=== PATIENT | female | born 1995 | race Caucasian/White ===

== ENCOUNTER 2016-09-16 17:12 | Emergency (ER) | payer MEDICAID ==
--- NOTE | 2016-09-16 17:49 | Emergency Department Record ---
History of Present Illness - General Chief Complaint: Cough Stated Complaint: COUGH Time Seen by Provider: 09/16/16 17:40 Source: Patient Mode of Arrival: Ambulatory Limitations: No limitations - History of Present Illness Initial Comments: 21 yo female presents with a cough for a week. She has a history of asthma and recent ovarian surgery in the last 2 weeks. No history of DVT or PE. The cough has been harsh with some pain as well. She has had some productive sputum but no blood. No fever. She still has some mild low abdominal pain but no redness or drainage. MD Complaint: Cough Onset/Timin -: Week(s) Severity: Moderate Quality: Aching Consistency: Constant Improves With: Nothing Worsens With: Deep breaths Context: Other (Recent surgery) Associated Symptoms: Cough, Shortness of breath - Related Data Home Medications Medication Instructions Recorded Confirmed Last Taken Albuterol Sulfate [Proair Hfa] 1 - 2 puff IH .EVERY 4-6 HOURS PRN 09/16/1609/1609/16/16 14:00 Previous Rx's Medication Instructions Recorded Azithromycin [Zithromax] 250 mg PO DAILY #4 tab 09/16/16 Benzonatate [Tessalon] 1 cap PO Q8H PRN #20 cap 09/16/16 Hydrocodone/Acetaminophen [Dover 1 tab PO Q6H PRN #15 tab 09/16/16 7.5mg/325mg] Prednisone [Prednisone 20Mg] 20 mg PO BID #10 tab 09/16/16 Allergies Allergy/AdvReac Type Severity Reaction Status Date / Time codeine Allergy Intermediate HIVES Verified 08/28/16 17:48 morphine Allergy Intermediate VOMITING Verified 08/28/16 17:48 Penicillins Allergy Unknown PT UNSURE Verified 08/28/16 17:48 OF REACTION Travel Screening - Travel/Exposure Within Last 30 Days Have you traveled within the last 30 days?: No - Travel/Exposure Within Last Year Have you traveled outside the [place] in the last year?: No - Additonal Travel Details Have you been exposed to anyone with a communicable illness?: No - Travel Symptoms Symptom Screening: None Review of Systems Constitutional: Denies: Chills, Fever, Malaise, Night sweats, Weakness Eyes: Denies: Eye discharge, Eye pain, Photophobia, Vision change ENT: Denies: Congestion, Ear pain, Epistaxis, Throat pain Respiratory: Reports: Cough, Dyspnea, Wheezes. Denies: Hemoptysis Cardiovascular: Reports: Chest pain. Denies: Palpitations, Syncope Endocrine: Denies: Fatigue, Heat or cold intolerance, Polydipsia, Polyuria Gastrointestinal: Denies: Abdominal pain, Diarrhea, Nausea, Vomiting Genitourinary: Denies: Dysuria Musculoskeletal: Reports: Back pain. Denies: Arthralgia, Myalgia, Neck pain Skin: Denies: Bruising, Change in color, Rash Neurological: Reports: Headache. Denies: Confusion Psychiatric: Denies: Anxiety Hematological/Lymphatic: Denies: Blood Clots, Easy bleeding, Easy bruising, Swollen glands Past Medical History - SOCIAL HISTORY Smoking Status: Light tobacco smoker (<10/day) Alcohol Use: Rare Drug Use: None - RESPIRATORY Hx Respiratory Disorders: Yes Hx Asthma: Yes Comment:: cough x3 months - CARDIOVASCULAR Hx Cardio Disorders: No - NEURO Hx Neuro Disorders: No - GI Hx GI Disorders: Yes Hx Crohn's Disease: Yes Hx Rectal Bleeding: Yes Comment:: ulcerative colitis - Hx Genitourinary Disorders: No - ENDOCRINE Hx Endocrine Disorders: No Hx Thyroid Disease: (?hypothyroid) - MUSCULOSKELETAL Hx Musculoskeletal Disorders: No - PSYCH Hx Psych Problems: No - HEMATOLOGY/ONCOLOGY Hx Hematology/Oncology Disorders: Yes Hx Anemia: Yes (Iron def.) Hx Blood Transfusions: No Family Medical History Any Significant Family History?: Yes Hx Cancer: Grandparents Hx Heart Disease: Father Physical Exam - General General Appearance: Alert, Oriented x3, Cooperative, No acute distress Limitations: No limitations - Head Head exam: Normal inspection - Eye Eye exam: Normal appearance, PERRL. negative: Conjunctival injection, Scleral icterus - ENT ENT exam: Normal exam, Mucous membranes moist Ear exam: Normal external inspection Nasal Exam: Normal inspection Mouth exam: Normal external inspection Teeth exam: Normal inspection Throat exam: Normal inspection - Neck Neck exam: Normal inspection, Full ROM. negative: Lymphadenopathy, Tenderness - Respiratory Respiratory exam: Decreased breath sounds, Prolonged expiratory, Wheezes. negative: Normal lung sounds bilaterally, Accessory muscle use, Chest wall tenderness, Respiratory distress - Cardiovascular Cardiovascular Exam: Regular rate, Normal rhythm, Normal heart sounds - GI/Abdominal GI/Abdominal exam: Soft, Tenderness (mild at the incision sites). negative: Distended, Guarding, Rebound, Rigid - Rectal Rectal exam: Deferred - exam: Deferred - Extremities Extremities exam: Normal inspection, Full ROM, Normal capillary refill. negative: Calf tenderness, Pedal edema, Tenderness - Back Back exam: Reports: Normal inspection, Full ROM. Denies: CVA tenderness (R), CVA tenderness (L), Muscle spasm, Rash noted, Tenderness - Neurological Neurological exam: Alert, Normal gait, Oriented X3 - Psychiatric Psychiatric exam: Normal affect, Normal mood - Skin Skin exam: Dry, Intact, Normal color, Warm Course Vital Signs 09/16/16 17:19 Temperature 98.0 F Pulse Rate 98 H Respiratory 18 Rate Blood Pressure 136/81 Pulse Ox 98 - Reevaluation(s) Reevaluation #1: I discussed with the patient my concerns about her cough, shortness of breath, wheezing with her recent pelvic surgery I recommend CTA to rule out PE as well.. She understands and agrees. 09/16/16 17:53 Reevaluation #2: No acute changes on the labs Pt to CT 09/16/16 18:41 Reevaluation #3: CT is pending Case signed out to Dr Torres for results See his note for further documentation 09/16/16 19:41 Medical Decision Making - Lab Data Result diagrams: 09/16/16 17:50 09/16/16 17:50 Disposition Clinical Impression: Asthma attack Condition: (1) Good Instructions: Asthma (ED) Prescriptions: Hydrocodone/Acetaminophen [Dover 7.5mg/325mg] 1 tab PO Q6H PRN #15 tab PRN Reason: Pain - General Prednisone [Prednisone 20Mg] 20 mg PO BID #10 tab Benzonatate [Tessalon] 1 cap PO Q8H PRN #20 cap PRN Reason: Cough Azithromycin [Zithromax] 250 mg PO DAILY #4 tab Forms: Patient Portal Access
[2016-09-16 17:59] LABS: HEMATOCRIT 42.1 % (35.0-47.0); HEMOGLOBIN 14.7 gm/dl (11.6-16.0); MEAN CELL VOLUME 85.4 fl (81-97); MEAN CORPUSCULAR HEMOGLOBIN 29.8 pg (27-33); MEAN CORPUSCULAR HGB CONC 34.9 g/dl (32-36); MEAN PLATELET VOLUME 9.9 fl (7.4-10.4); PLATELET COUNT 482 K/uL (130-400); RED BLOOD COUNT 4.93 M/uL (3.80-5.40); RED CELL DISTRIBUTION WIDTH 14.4 % (11.5-14.5); WHITE BLOOD COUNT W/O DIFF 11.9 K/uL (4.2-12.2)
[2016-09-16 18:07] LABS: PLATELET ESTIMATE NORMAL (NORMAL)
[2016-09-16 18:12] LABS: ANION GAP 11.1 (7-16); BLOOD UREA NITROGEN 8 mg/dL (7-17); CARBON DIOXIDE 22.9 mmol/L (22-30); CREATININE 0.7 mg/dL (0.52-1.04); EST GLOMERULAR FILTRATION RATE > 60 ml/min; GLUCOSE,RANDOM 96 mg/dL (70-110)
[2016-09-16] MEDS: IPRATROPIUM/ALBUTEROL (0.5MG/3MG) NEB INH ONE (18:17)
[2016-09-16] MEDS: METHYLPREDNISOLONE PF 125MG/VIAL IVP STA (18:31)
--- NOTE | 2016-09-16 20:32 | Emergency Department Record ---
History of Present Illness - General Chief Complaint: Cough Stated Complaint: COUGH Time Seen by Provider: 09/16/16 17:40 Source: Patient Mode of Arrival: Ambulatory Limitations: No limitations - History of Present Illness Onset/Timin -: Week(s) Severity: Moderate Quality: Aching Consistency: Constant Improves With: Nothing Worsens With: Deep breaths Context: Other (Recent surgery) Associated Symptoms: Cough, Shortness of breath - Related Data Home Medications Medication Instructions Recorded Confirmed Last Taken Albuterol Sulfate [Proair Hfa] 1 - 2 puff IH .EVERY 4-6 HOURS PRN 09/16/1609/1609/16/16 14:00 Previous Rx's Medication Instructions Recorded Azithromycin [Zithromax] 250 mg PO DAILY #4 tab 09/16/16 Benzonatate [Tessalon] 1 cap PO Q8H PRN #20 cap 09/16/16 Hydrocodone/Acetaminophen [Sells 1 tab PO Q6H PRN #15 tab 09/16/16 7.5mg/325mg] Prednisone [Prednisone 20Mg] 20 mg PO BID #10 tab 09/16/16 Allergies Allergy/AdvReac Type Severity Reaction Status Date / Time codeine Allergy Intermediate HIVES Verified 08/28/16 17:48 morphine Allergy Intermediate VOMITING Verified 08/28/16 17:48 Penicillins Allergy Unknown PT UNSURE Verified 08/28/16 17:48 OF REACTION Travel Screening - Travel/Exposure Within Last 30 Days Have you traveled within the last 30 days?: No - Travel/Exposure Within Last Year Have you traveled outside the [place] in the last year?: No - Additonal Travel Details Have you been exposed to anyone with a communicable illness?: No - Travel Symptoms Symptom Screening: None Review of Systems Constitutional: Denies: Chills, Fever, Malaise, Night sweats, Weakness Eyes: Denies: Eye discharge, Eye pain, Photophobia, Vision change ENT: Denies: Congestion, Ear pain, Epistaxis, Throat pain Respiratory: Reports: Cough, Dyspnea, Wheezes. Denies: Hemoptysis Cardiovascular: Reports: Chest pain. Denies: Palpitations, Syncope Endocrine: Denies: Fatigue, Heat or cold intolerance, Polydipsia, Polyuria Gastrointestinal: Denies: Abdominal pain, Diarrhea, Nausea, Vomiting Genitourinary: Denies: Dysuria Musculoskeletal: Reports: Back pain. Denies: Arthralgia, Myalgia, Neck pain Skin: Denies: Bruising, Change in color, Rash Neurological: Reports: Headache. Denies: Confusion Psychiatric: Denies: Anxiety Hematological/Lymphatic: Denies: Blood Clots, Easy bleeding, Easy bruising, Swollen glands Past Medical History - SOCIAL HISTORY Smoking Status: Light tobacco smoker (<10/day) Alcohol Use: Rare Drug Use: None - RESPIRATORY Hx Respiratory Disorders: Yes Hx Asthma: Yes Comment:: cough x3 months - CARDIOVASCULAR Hx Cardio Disorders: No - NEURO Hx Neuro Disorders: No - GI Hx GI Disorders: Yes Hx Crohn's Disease: Yes Hx Rectal Bleeding: Yes Comment:: ulcerative colitis - Hx Genitourinary Disorders: No - ENDOCRINE Hx Endocrine Disorders: No Hx Thyroid Disease: (?hypothyroid) - MUSCULOSKELETAL Hx Musculoskeletal Disorders: No - PSYCH Hx Psych Problems: No - HEMATOLOGY/ONCOLOGY Hx Hematology/Oncology Disorders: Yes Hx Anemia: Yes (Iron def.) Hx Blood Transfusions: No Family Medical History Any Significant Family History?: Yes Hx Cancer: Grandparents Hx Heart Disease: Father Physical Exam - General Limitations: No limitations Course Vital Signs 09/16/16 09/16/16 17:19 18:24 Temperature 98.0 F Pulse Rate 98 H 96 H Respiratory 18 18 Rate Blood Pressure 136/81 Pulse Ox 98 96 - Reevaluation(s) Reevaluation #1: 09/16/16 20:29 CTA Chest: Minor bilateral infiltrates, no PE. Patient was given Zithromax in ED, RA biox 95%, Pulse 90's, appears stable for discharge a this time. 09/16/16 20:30 Medical Decision Making - Lab Data Result diagrams: 09/16/16 17:50 09/16/16 17:50 Lab Results 09/16/16 09/16/16 09/16/16 Range/Units 17:50 17:50 17:50 WBC 11.9 (4.2-12.2) K/uL RBC 4.93 (3.80-5.40) M/uL Hgb 14.7 (11.6-16.0) gm/dl Hct 42.1 (35.0-47.0) % MCV 85.4 (81-97) fl MCH 29.8 (27-33) pg MCHC 34.9 (32-36) g/dl RDW 14.4 (11.5-14.5) % Plt Count 482 H (130-400) K/uL MPV 9.9 (7.4-10.4) fl Neutrophils % 58.0 (47-80) % Lymphocytes % 21.0 (16-45) % Monocytes % 5.0 (0-9) % Eosinophils % 16.0 H (0-6) % Basophils % Not Reportable Platelet Estimate Normal (NORMAL) RBC Morphology Normal Sodium 139 (136-145) mmol/L Potassium 4.5 (3.5-5.1) mmol/L Chloride 105 (98-107) mmol/L Carbon Dioxide 22.9 (22-30) mmol/L Anion Gap 11.1 (7-16) BUN 8 (7-17) mg/dL Creatinine 0.7 (0.52-1.04) mg/dL Estimated GFR > 60 ml/min Random Glucose 96 (70-110) mg/dL Calcium 9.8 (8.5-10.1) mg/dL Serum HCG, Qual Negative (NEGATIVE) Disposition Clinical Impression: Asthma attack Pneumonia Qualifiers: Pneumonia type: due to unspecified organism Laterality: bilateral Lung location : lower lobe of lung Qualified Code(s): J18.9 - Pneumonia, unspecified organism Disposition: Home, Self-Care Condition: (1) Good Instructions: Asthma (ED) Prescriptions: Hydrocodone/Acetaminophen [Sells 7.5mg/325mg] 1 tab PO Q6H PRN #15 tab PRN Reason: Pain - General Prednisone [Prednisone 20Mg] 20 mg PO BID #10 tab Benzonatate [Tessalon] 1 cap PO Q8H PRN #20 cap PRN Reason: Cough Azithromycin [Zithromax] 250 mg PO DAILY #4 tab Forms: Patient Portal Access Time of Disposition: 20:31
[2016-09-16] MEDS ORDERED: HYDROCODONE/APAP 5/325MG TABLET PO ONE (20:33)
[2016-09-16] MEDS: AZITHROMYCIN 500 MG TABLET PO ONE (20:37)
--- NOTE | 2016-09-18 15:14 | CT ANGIOGRAM REPORT ---
DATE: 09/16/2016 at 6:44 p.m. EXAM: CT ANGIOGRAM OF THE CHEST WITH POSTPROCESSING. HISTORY: Chest pain and cough. Difficulty breathing. A history of ovarian surgery two weeks ago. TECHNIQUE: Standard CT angiography of the chest was performed with postprocessing following the bolus administration of 100 mL of Omnipaque 350. Additional coronal and sagittal maximum intensity projection reformatted images were performed on an independent work station under concurrent supervision. COMPARISON: 06/13/2015. FINDINGS: The heart is normal in size. The aorta is normal in caliber with no dissection. The pulmonary arterial tree is normal. There is no pulmonary embolus. There is residual thymic tissue within the anterior mediastinal which appears unchanged. There are mildly enlarged right hilar and subcarinal lymph nodes which are also stable from the 2014 examination. The right hilar lymph node measures 1.1 x 1.7 cm, and the subcarinal lymph node measures 1.7 x 2.7 cm. Other scattered non-enlarged mediastinal and hilar lymph nodes are present , and all appear stable. There are mild ground glass infiltrates within the lower lungs bilaterally consistent with mild acute pneumonitis. A stable, small air-filled bleb is present within the left upper lobe. There is no pneumothorax or effusion. The visualized portions of the upper abdomen appear normal. The gallbladder is surgically absent. IMPRESSION: 1. THERE IS NO EVIDENCE FOR PULMONARY EMBOLUS. 2. MILD GROUND GLASS INFILTRATES WITHIN THE LOWER LOBES BILATERALLY CONSISTENT WITH MINOR, ACUTE PNEUMONITIS. 3. STABLE, MILDLY ENLARGED RIGHT HILAR AND SUBCARINAL LYMPH NODES. 4. STABLE AIR-FILLED BLEB WITHIN THE LEFT UPPER LOBE. JOB NUMBER: [id number] [facility]
== END 2016-09-16 20:44 | disposition home or self-care (01) ==
LOC: ER 17:12
DX: J45.901 Unspecified asthma with (acute) exacerbation (principal); J18.9 Pneumonia, unspecified organism; R06.02 Shortness of breath; F17.210 Nicotine dependence, cigarettes, uncomplicated; R10.30 Lower abdominal pain, unspecified; Z98.890 Other specified postprocedural states
CPT/HCPCS: 99284 ×2; 96374; 80048; 84703; 85027; 71275; 94640; Q9967; J2930

== ENCOUNTER 2016-10-12 21:56 | Emergency (ER) | payer MEDICAID ==
--- NOTE | 2016-10-12 22:19 | Emergency Department Record ---
History of Present Illness - General Chief complaint: Toothache Stated complaint: JAW/DENTAL PAIN Time Seen by Provider: 10/12/16 22:13 Source: Patient Mode of Arrival: Ambulatory - History of Present Illness Initial comments: The yue saw a dentist last Friday10-07-16 for dental pain on her left upper teeth. He was unable to extract the tooth because she is unable to get her jaw opened wide enough and he sent her to a specialist at [facility]. She states that some pus has beendraining along the lower teeth, but now she is in more pain, and can't eat or chew normally. She denies f,c, or trouble swallowing. MD complaint: Tooth pain Onset/Timin -: Hour(s) Severity scale (1-10): 10 Improves with: None Worsens with: Eating, Movement - Related Data Home Medications Medication Instructions Recorded Confirmed Last Taken Albuterol Sulfate [Proair Hfa] 1 - 2 puff IH .EVERY 4-6 HOURS PRN 09/16/1610/1209/16/16 14:00 Previous Rx's Medication Instructions Recorded Clindamycin HCl [Cleocin HCl] 300 mg PO TID #20 capsule 10/12/16 Tramadol HCl [Ultram] 50 mg PO Q8H #7 tab 10/12/16 Allergies Allergy/AdvReac Type Severity Reaction Status Date / Time codeine Allergy Intermediate HIVES Verified 08/28/16 17:48 morphine Allergy Intermediate VOMITING Verified 08/28/16 17:48 Penicillins Allergy Unknown PT UNSURE Verified 08/28/16 17:48 OF REACTION Travel Screening - Travel/Exposure Within Last 30 Days Have you traveled within the last 30 days?: No - Travel Symptoms Symptom Screening: None Review of Systems Reviewed: No additional complaints except as noted below Constitutional: Reports: As per HPI. Denies: Chills, Fever, Malaise, Night sweats, Weakness, Weight change Eyes: Reports: As per HPI. Denies: Eye discharge, Eye pain, Photophobia, Vision change ENT: Reports: As per HPI. Denies: Congestion, Dental pain, Ear pain, Epistaxis , Hearing loss, Throat pain Respiratory: Reports: As per HPI. Denies: Cough, Dyspnea, Hemoptysis, Stridor, Wheezes Cardiovascular: Reports: As per HPI. Denies: Arrhythmia, Chest pain, Dyspnea on exertion, Edema, Murmurs, Orthopnea, Palpitations, Paroxysmal nocturnal dyspnea, Rheumatic Fever, Syncope Endocrine: Reports: As per HPI. Denies: Fatigue, Heat or cold intolerance, Polydipsia, Polyuria Gastrointestinal: Reports: As per HPI. Denies: Abdominal pain, Constipation, Diarrhea, Hematemesis, Hematochezia, Melena, Nausea, Vomiting Genitourinary: Reports: As per HPI. Denies: Abnormal menses, Discharge, Dyspareunia, Dysuria, Frequency, Hematuria, Incontinence, Retention, Urgency Musculoskeletal: Reports: As per HPI. Denies: Arthralgia, Back pain, Gout, Joint swelling, Myalgia, Neck pain Skin: Reports: As per HPI. Denies: Bruising, Change in color, Change in hair/ nails, Lesions, Pruritus, Rash Neurological: Reports: As per HPI. Denies: Abnormal gait, Confusion, Headache, Numbness, Paresthesias, Seizure, Tingling, Tremors, Vertigo, Weakness Psychiatric: Reports: As per HPI. Denies: Anxiety, Auditory hallucinations, Depression, Homicidal thoughts, Suicidal thoughts, Visual hallucinations Hematological/Lymphatic: Reports: As per HPI. Denies: Anemia, Blood Clots, Easy bleeding, Easy bruising, Swollen glands Past Medical History - SOCIAL HISTORY Smoking Status: Light tobacco smoker (<10/day) - RESPIRATORY Hx Respiratory Disorders: Yes Hx Asthma: Yes Comment:: cough x3 months - CARDIOVASCULAR Hx Cardio Disorders: No - NEURO Hx Neuro Disorders: No - GI Hx GI Disorders: Yes Hx Crohn's Disease: Yes Hx Rectal Bleeding: Yes Comment:: ulcerative colitis - Hx Genitourinary Disorders: No - ENDOCRINE Hx Endocrine Disorders: No Hx Thyroid Disease: (?hypothyroid) - MUSCULOSKELETAL Hx Musculoskeletal Disorders: No - PSYCH Hx Psych Problems: No - HEMATOLOGY/ONCOLOGY Hx Hematology/Oncology Disorders: Yes Hx Anemia: Yes (Iron def.) Hx Blood Transfusions: No Family Medical History Any Significant Family History?: Yes Hx Cancer: Grandparents Hx Heart Disease: Father Physical Exam - General General Appearance: Alert, Oriented x3, Cooperative, No acute distress - Head Head exam: Normal inspection - Eye Eye exam: Normal appearance, PERRL Pupils: Normal accommodation - ENT ENT exam: Normal exam, Mucous membranes moist, Normal external ear exam, Normal orophraynx, TM's normal bilaterally Ear exam: Normal external inspection. negative: External canal tenderness Nasal Exam: Normal inspection. negative: Discharge, Sinus tenderness Mouth exam: Normal external inspection, Tongue normal Teeth exam: Normal inspection, Dental tenderness # (#16, #17), Gingival enlargement (inflamatory changes along lower mucca gum line.). negative: Dental caries Throat exam: Normal inspection. negative: Tonsillar erythema, Tonsillar exudate - Neck Neck exam: Normal inspection, Full ROM. negative: Lymphadenopathy, Meningismus , Tenderness - Respiratory Respiratory exam: Normal lung sounds bilaterally. negative: Respiratory distress - Cardiovascular Cardiovascular Exam: Regular rate, Normal rhythm, Normal heart sounds - GI/Abdominal GI/Abdominal exam: Soft, Normal bowel sounds. negative: Tenderness - Rectal Rectal exam: Deferred - exam: Deferred - Extremities Extremities exam: Normal inspection, Full ROM, Normal capillary refill. negative: Tenderness - Back Back exam: Reports: Normal inspection, Full ROM. Denies: Muscle spasm, Rash noted, Tenderness - Neurological Neurological exam: Alert, Normal gait, Oriented X3, Reflexes normal - Psychiatric Psychiatric exam: Normal affect, Normal mood - Skin Skin exam: Dry, Intact, Normal color, Warm Course Vital Signs 10/12/16 22:04 Temperature 98 F Pulse Rate [ 103 H Pulse Ox Probe] Respiratory 20 Rate Blood Pressure 130/101 [Left Arm] Pulse Ox 98 Medical Decision Making - Management Options MDM Management: No Additional Work-up Planned (FU with Dentist as previously arranged.) Disposition Disposition: Discharge Clinical Impression: Pain, dental Disposition: Home, Self-Care Instructions: Dental Abscess (ED), Toothache (ED) Additional Instructions: Take antibiotics until gone. Take ultram only if needed for severe pain. Tylenol or ibuprofen as directed as needed for mild to moderate pain. Soft diet. FU with dentist as previously arranged. Prescriptions: Clindamycin HCl [Cleocin HCl] 300 mg PO TID #20 capsule Tramadol HCl [Ultram] 50 mg PO Q8H #7 tab Forms: Patient Portal Access
[2016-10-12] MEDS ORDERED: CLINDAMYCIN 150 MG CAP PO ONE (22:23)
[2016-10-12] MEDS ORDERED: TRAMADOL HCL 50 MG TABLET PO ONE (22:24)
== END 2016-10-12 22:58 | disposition home or self-care (01) ==
LOC: ER 21:56
DX: K08.89 Other specified disorders of teeth and supporting structures (principal)
CPT/HCPCS: 99282

== ENCOUNTER 2016-10-16 13:15 | Emergency (ER) | payer MEDICAID ==
--- NOTE | 2016-10-16 13:25 | Emergency Department Record ---
History of Present Illness - General Chief complaint: Toothache Stated complaint: TOOTHACHE Time Seen by Provider: 10/16/16 13:24 Source: Patient, RN notes reviewed - History of Present Illness Initial comments: toothache seen here on sep and given clindamycin and she is using tramadol. Upper left last molar painful and she was seen here and previously she saw a dentist in [place] who referred her to [facility] and her appointment is oct complaint: Tooth pain - Related Data Home Medications Medication Instructions Recorded Confirmed Last Taken Albuterol Sulfate [Proair Hfa] 1 - 2 puff IH .EVERY 4-6 HOURS PRN 09/16/1610/1609/16/16 14:00 Previous Rx's Medication Instructions Recorded Clindamycin HCl [Cleocin HCl] 300 mg PO TID #20 capsule 10/12/16 Tramadol HCl [Ultram] 50 mg PO Q8H #7 tab 10/12/16 Cephalexin [Keflex] 500 mg PO QID #40 cap 10/16/16 Tramadol HCl 50 mg PO Q8H #15 tab 10/16/16 Allergies Allergy/AdvReac Type Severity Reaction Status Date / Time codeine Allergy Intermediate HIVES Verified 08/28/16 17:48 morphine Allergy Intermediate VOMITING Verified 08/28/16 17:48 Penicillins Allergy Unknown PT UNSURE Verified 08/28/16 17:48 OF REACTION Review of Systems Reviewed: No additional complaints except as noted below Constitutional: Reports: As per HPI. Denies: Chills, Fever, Malaise, Night sweats, Weakness, Weight change Eyes: Reports: As per HPI. Denies: Eye discharge, Eye pain, Photophobia, Vision change ENT: Reports: As per HPI, Dental pain. Denies: Congestion, Ear pain, Epistaxis , Hearing loss, Throat pain Respiratory: Reports: As per HPI. Denies: Cough, Dyspnea, Hemoptysis, Stridor, Wheezes Cardiovascular: Reports: As per HPI. Denies: Arrhythmia, Chest pain, Dyspnea on exertion, Edema, Murmurs, Orthopnea, Palpitations, Paroxysmal nocturnal dyspnea, Rheumatic Fever, Syncope Endocrine: Reports: As per HPI. Denies: Fatigue, Heat or cold intolerance, Polydipsia, Polyuria Gastrointestinal: Reports: As per HPI. Denies: Abdominal pain, Constipation, Diarrhea, Hematemesis, Hematochezia, Melena, Nausea, Vomiting Genitourinary: Reports: As per HPI. Denies: Abnormal menses, Discharge, Dyspareunia, Dysuria, Frequency, Hematuria, Incontinence, Retention, Urgency Musculoskeletal: Reports: As per HPI. Denies: Arthralgia, Back pain, Gout, Joint swelling, Myalgia, Neck pain Skin: Reports: As per HPI. Denies: Bruising, Change in color, Change in hair/ nails, Lesions, Pruritus, Rash Neurological: Reports: As per HPI. Denies: Abnormal gait, Confusion, Headache, Numbness, Paresthesias, Seizure, Tingling, Tremors, Vertigo, Weakness Psychiatric: Reports: As per HPI. Denies: Anxiety, Auditory hallucinations, Depression, Homicidal thoughts, Suicidal thoughts, Visual hallucinations Hematological/Lymphatic: Reports: As per HPI. Denies: Anemia, Blood Clots, Easy bleeding, Easy bruising, Swollen glands Past Medical History - SOCIAL HISTORY Smoking Status: Light tobacco smoker (<10/day) - RESPIRATORY Hx Respiratory Disorders: Yes Hx Asthma: Yes Comment:: cough x3 months - CARDIOVASCULAR Hx Cardio Disorders: No - NEURO Hx Neuro Disorders: No - GI Hx GI Disorders: Yes Hx Crohn's Disease: Yes Hx Rectal Bleeding: Yes Comment:: ulcerative colitis - Hx Genitourinary Disorders: No - ENDOCRINE Hx Endocrine Disorders: No Hx Thyroid Disease: (?hypothyroid) - MUSCULOSKELETAL Hx Musculoskeletal Disorders: No - PSYCH Hx Psych Problems: No - HEMATOLOGY/ONCOLOGY Hx Hematology/Oncology Disorders: Yes Hx Anemia: Yes (Iron def.) Hx Blood Transfusions: No Family Medical History Hx Cancer: Grandparents Hx Heart Disease: Father Physical Exam - General General Appearance: Alert, Oriented x3, Cooperative, No acute distress - Head Head exam: Normal inspection - Eye Eye exam: Normal appearance, PERRL Pupils: Normal accommodation - ENT ENT exam: Normal exam, Mucous membranes moist, Normal external ear exam, Normal orophraynx, TM's normal bilaterally Ear exam: Normal external inspection. negative: External canal tenderness Nasal Exam: Normal inspection. negative: Discharge, Sinus tenderness Mouth exam: Normal external inspection, Tongue normal Teeth exam: Normal inspection, Dental tenderness # (upper left last molar). negative: Dental caries Throat exam: Normal inspection. negative: Tonsillar erythema, Tonsillar exudate - Neck Neck exam: Normal inspection, Full ROM. negative: Tenderness - Respiratory Respiratory exam: Normal lung sounds bilaterally. negative: Respiratory distress - Cardiovascular Cardiovascular Exam: Regular rate, Normal rhythm, Normal heart sounds - GI/Abdominal GI/Abdominal exam: Soft, Normal bowel sounds. negative: Tenderness - Rectal Rectal exam: Deferred - exam: Deferred - Extremities Extremities exam: Normal inspection, Full ROM, Normal capillary refill. negative: Tenderness - Back Back exam: Reports: Normal inspection, Full ROM. Denies: Muscle spasm, Rash noted, Tenderness - Neurological Neurological exam: Alert, Normal gait, Oriented X3, Reflexes normal - Psychiatric Psychiatric exam: Normal affect, Normal mood - Skin Skin exam: Dry, Intact, Normal color, Warm Disposition Clinical Impression: Pain, dental Disposition: Home, Self-Care Condition: (1) Good Instructions: Toothache (ED) Additional Instructions: continue clindamycin and start keflex four times a day warm water rinses call dentist to see if she can get in sooner Prescriptions: Cephalexin [Keflex] 500 mg PO QID #40 cap Tramadol HCl 50 mg PO Q8H #15 tab Forms: Patient Portal Access Time of Disposition: 13:53
== END 2016-10-16 14:04 | disposition home or self-care (01) ==
LOC: ER 13:15
DX: K08.89 Other specified disorders of teeth and supporting structures (principal)
CPT/HCPCS: 99282

== ENCOUNTER 2016-12-12 13:31 | Emergency (ER) | payer MEDICAID ==
--- NOTE | 2016-12-12 13:48 | Emergency Department Record ---
History of Present Illness - General Chief complaint: Dental Stated complaint: MOUTH PAIN Time Seen by Provider: 12/12/16 13:47 Source: Patient Mode of Arrival: Ambulatory Limitations: No limitations - History of Present Illness Initial comments: The patient has chronic L upper molar pain for months and now it is hurting again. She has a fx'd tooth and is having trouble getting into oral surgery. There is no swelling, fever, or edema. MD complaint: Tooth pain Onset/Timin -: Month(s) Location: Tooth # Severity: Moderate Severity scale (1-10): 8 Quality: Aching, Sharp Consistency: Constant Improves with: None Worsens with: Eating Context- Dental: History of dental caries Associated Symptoms: Toothache - Related Data Previous Rx's Medication Instructions Recorded Clindamycin HCl [Cleocin HCl] 300 mg PO QID #28 capsule 12/12/16 Tramadol HCl 50 mg PO Q8H #15 tab 12/12/16 Allergies Allergy/AdvReac Type Severity Reaction Status Date / Time codeine Allergy Intermediate HIVES Verified 08/28/16 17:48 morphine Allergy Intermediate VOMITING Verified 08/28/16 17:48 Penicillins Allergy Unknown PT UNSURE Verified 08/28/16 17:48 OF REACTION Travel Screening - Travel/Exposure Within Last 30 Days Have you traveled within the last 30 days?: No Review of Systems Constitutional: Denies: Chills, Fever Eyes: Denies: Eye discharge ENT: Denies: Congestion Respiratory: Denies: Cough, Dyspnea Past Medical History - SOCIAL HISTORY Smoking Status: Light tobacco smoker (<10/day) Alcohol Use: None Drug Use: None - RESPIRATORY Hx Respiratory Disorders: Yes Hx Asthma: Yes Comment:: cough x3 months - CARDIOVASCULAR Hx Cardio Disorders: No - NEURO Hx Neuro Disorders: No - GI Hx GI Disorders: Yes Hx Crohn's Disease: Yes Hx Rectal Bleeding: Yes Comment:: ulcerative colitis - Hx Genitourinary Disorders: No - ENDOCRINE Hx Endocrine Disorders: No Hx Thyroid Disease: (?hypothyroid) - MUSCULOSKELETAL Hx Musculoskeletal Disorders: No - PSYCH Hx Psych Problems: No - HEMATOLOGY/ONCOLOGY Hx Hematology/Oncology Disorders: Yes Hx Anemia: Yes (Iron def.) Hx Blood Transfusions: No Family Medical History Any Significant Family History?: Yes Hx Cancer: Grandparents Hx Heart Disease: Father Physical Exam - General General Appearance: Alert, Oriented x3, Cooperative, No acute distress - Head Head exam: Atraumatic, Normocephalic, Normal inspection - Eye Eye exam: Normal appearance, PERRL - ENT ENT exam: Normal exam, Mucous membranes moist, Normal external ear exam, Normal orophraynx, TM's normal bilaterally Teeth exam: Dental caries, Dental tenderness # (15. The tooth is partially fx' d. There is no gum line swelling or any sign of any abscess.). negative: Normal inspection Throat exam: negative: Normal inspection, Tonsillar erythema, Tonsillomegaly - Neck Neck exam: Normal inspection, Full ROM. negative: Tenderness Course Vital Signs 12/12/16 13:33 Temperature 97.8 F Pulse Rate 108 H Respiratory 18 Rate Blood Pressure 126/75 Pulse Ox 98 - Reevaluation(s) Reevaluation #1: I did discuss the issues with the patient and the need for oral surgery F/U. 12/12/16 14:03 Disposition Disposition: Discharge Clinical Impression: Pain, dental Disposition: Home, Self-Care Condition: (1) Good Instructions: Toothache (ED) Additional Instructions: Please see the dental clinic in [place] when possible. Please take the Clindamycin and Tramadol as directed. Please see your PCP for further pain medicine. Prescriptions: Clindamycin HCl [Cleocin HCl] 300 mg PO QID #28 capsule Tramadol HCl 50 mg PO Q8H #15 tab Forms: Patient Portal Access Time of Disposition: 13:56
== END 2016-12-12 14:07 | disposition home or self-care (01) ==
LOC: ER 13:31
DX: S02.5XXA Fracture of tooth (traumatic), initial encounter for closed fracture (principal)
CPT/HCPCS: 99282

== ENCOUNTER 2016-12-24 12:36 | Emergency (ER) | payer MEDICAID ==
--- NOTE | 2016-12-24 12:58 | Emergency Department Record ---
History of Present Illness - General Chief Complaint: Fall Injury Stated Complaint: FELL Time Seen by Provider: 12/24/16 12:55 Source: Patient Mode of Arrival: Ambulatory Limitations: No limitations - History of Present Illness Initial Comments: The patient is here due to injuring herself at home about 45 minutes ago. She states she slipped getting out of the shower and landed on her back hitting her head and low back in the process. Now she is having low back and head pain. She does have a BARROSO and is nauseated but denies any LOC, vomiting, AP, leg numbness, weakness or any bowel or bladder issues. She is ambulating normally and denies the possibility of due to having a normal menses 2 weeks ago and being on oral contraceptives daily. The patient ambulated to the ED with no difficulty. MD Complaint: Fall Onset/Timin -: Minutes(s) Fall From: Standing When Fall Occurred: Just prior to arrival Place Fall Occurred: Home Loss of Consciousness: None Prolonged Down Time?: No Location: Head, Back Quality: Aching Associated Symptoms: Lightheaded, Vertigo - Isak Coma Scale Eye Response: (4) Open spontaneously Motor Response: (6) Obeys commands Verbal Response: (5) Oriented Isak Total: 15 - Related Data Previous Rx's Medication Instructions Recorded Cyclobenzaprine HCl [Flexeril] 10 mg PO TID PRN #20 tablet 12/24/16 Naproxen [Naprosyn] 250 mg PO BID #14 tablet 12/24/16 Allergies Allergy/AdvReac Type Severity Reaction Status Date / Time codeine Allergy Intermediate HIVES Verified 08/28/16 17:48 morphine Allergy Intermediate VOMITING Verified 08/28/16 17:48 Penicillins Allergy Unknown PT UNSURE Verified 08/28/16 17:48 OF REACTION Travel Screening - Travel/Exposure Within Last 30 Days Have you traveled within the last 30 days?: No - Travel/Exposure Within Last Year Have you traveled outside the [place] in the last year?: No - Additonal Travel Details Have you been exposed to anyone with a communicable illness?: No - Travel Symptoms Symptom Screening: None Review of Systems Constitutional: Denies: Chills, Fever Eyes: Denies: Eye discharge ENT: Denies: Congestion, Throat pain Respiratory: Denies: Cough, Dyspnea Past Medical History - SOCIAL HISTORY Smoking Status: Light tobacco smoker (<10/day) Alcohol Use: None Drug Use: None - RESPIRATORY Hx Respiratory Disorders: Yes Hx Asthma: Yes Comment:: cough x3 months - CARDIOVASCULAR Hx Cardio Disorders: No - NEURO Hx Neuro Disorders: No - GI Hx GI Disorders: Yes Hx Crohn's Disease: Yes Hx Rectal Bleeding: Yes Comment:: ulcerative colitis - Hx Genitourinary Disorders: No - ENDOCRINE Hx Endocrine Disorders: No Hx Thyroid Disease: (?hypothyroid) - MUSCULOSKELETAL Hx Musculoskeletal Disorders: No - PSYCH Hx Psych Problems: No - HEMATOLOGY/ONCOLOGY Hx Hematology/Oncology Disorders: Yes Hx Anemia: Yes (Iron def.) Hx Blood Transfusions: No Family Medical History Any Significant Family History?: No Hx Cancer: Grandparents Hx Heart Disease: Father Physical Exam - General General Appearance: Alert, Oriented x3, Cooperative, No acute distress - Head Head exam: Atraumatic, Normocephalic, Normal inspection (There are no signs of any trauma, swelling, or bruising at the site of impact.) - Eye Eye exam: Normal appearance, PERRL - Neck Neck exam: Normal inspection, Full ROM (There is no significant pain with ROM.) . negative: Meningismus, Tenderness - Respiratory Respiratory exam: Normal lung sounds bilaterally. negative: Respiratory distress - Cardiovascular Cardiovascular Exam: Regular rate, Normal rhythm, Normal heart sounds - Extremities Extremities exam: Normal inspection, Full ROM, Normal capillary refill. negative: Tenderness - Back Back exam: Reports: Normal inspection, Vertebral tenderness (mildly to the L1-3 area. There is no bruising or selling appreciated.), Other (Neg SLR bilaterally. ) - Neurological Neurological exam: Alert, Normal gait, Oriented X3, Reflexes normal. negative: Abnormal gait, Altered, Motor sensory deficit Course Vital Signs 12/24/16 12:37 Temperature 97.4 F L Pulse Rate 122 H Respiratory 18 Rate Blood Pressure 122/84 Pulse Ox 97 - Reevaluation(s) Reevaluation #1: The patient is resting with no new complaints. She is still having pain in the lower and mid back and head. She has had no nausea, vomiting, or visual changes. I explained to the patient that her xrays are WNL's. We will discharge the patient on pain medicines and muscle relaxers and will have her F/U with her PCP later this week if needed. 12/24/16 14:40 Medical Decision Making - Data Complexity MDM Data: X-Ray Ordered and/or Reviewed - Radiology Data Radiology results: Report reviewed (The patient's xrays are all neg for any bony or acute traumatic injuries.) Disposition Disposition: Discharge Clinical Impression: Lumbar back pain Qualifiers: Chronicity: acute Back pain laterality: unspecified Sciatica presence: without sciatica Qualified Code(s): M54.5 - Low back pain Head injury, acute Qualifiers: Encounter type: initial encounter Qualified Code(s): S09.90XA - Unspecified injury of head, initial encounter Disposition: Home, Self-Care Condition: (1) Good Instructions: Minor Head Injury (ED), Low Back Strain (ED) Additional Instructions: Please rest and use the Naprosyn and Flexeril as directed. Please see your PCP if not better in 2-3 days. Return to the ER for any increased pain, fever, vomiting, leg numbness, weakness or any bowel or bladder incontinence. Prescriptions: Cyclobenzaprine HCl [Flexeril] 10 mg PO TID PRN #20 tablet PRN Reason: Pain Naproxen [Naprosyn] 250 mg PO BID #14 tablet Forms: Patient Portal Access Time of Disposition: 14:45
[2016-12-24] MEDS ORDERED: KETOROLAC 30 MG/ML VIAL IM ONE (13:03)
[2016-12-24] MEDS ORDERED: HYDROCODONE/APAP 5/325MG TABLET PO ONE (14:03)
== END 2016-12-24 14:50 | disposition home or self-care (01) ==
LOC: ER 12:36
DX: S09.90XA Unspecified injury of head, initial encounter (principal); M54.5 Low back pain; R11.0 Nausea; W18.2XXA Fall in (into) shower or empty bathtub, initial encounter; Y93.E1 Activity, personal bathing and showering; Y92.002 Bathroom of unspecified non-institutional (private) residence as the place of occurrence of the external cause
CPT/HCPCS: 99283; 96372; 99284; 72110; 72072; 70450; J1885

== ENCOUNTER 2017-02-12 20:01 | Emergency (ER) | payer MEDICAID ==
--- NOTE | 2017-02-12 20:29 | Emergency Department Record ---
History of Present Illness - General Chief complaint: Dental Stated complaint: DENTAL PAIN Time Seen by Provider: 02/12/17 20:25 Source: Patient Mode of Arrival: Ambulatory Limitations: No limitations - History of Present Illness Initial comments: 21 yo female presents to ED with a CC of left upper dental pain "for months" that worsened today following a new fracture to the tooth. Patient reports that she was supposed to go to [facility] ago for dental examination, but needed to cancel for personal reasons. Patient denies fevers, chills, or sore throat symptoms. MD complaint: Tooth pain Onset/Timin -: Days(s) Location: Tooth # 1 - Dental fracture Severity: Severe Severity scale (1-10): 10 Quality: Aching Consistency: Constant Improves with: Other medication Worsens with: Eating Context- Dental: History of dental caries, Other Associated Symptoms: Gum swelling, Toothache - Related Data Previous Rx's Medication Instructions Recorded Clindamycin HCl 300 mg PO TID #21 capsule 02/12/17 Naproxen [Naprosyn] 500 mg PO Q12H #30 tab 02/12/17 Allergies Allergy/AdvReac Type Severity Reaction Status Date / Time codeine Allergy Intermediate HIVES Verified 08/28/16 17:48 morphine Allergy Intermediate VOMITING Verified 08/28/16 17:48 Penicillins Allergy Unknown PT UNSURE Verified 08/28/16 17:48 OF REACTION Travel Screening - Travel/Exposure Within Last 30 Days Have you traveled within the last 30 days?: No - Travel Symptoms Symptom Screening: None Review of Systems Constitutional: Denies: Chills, Fever, Malaise, Night sweats Eyes: Denies: Eye discharge, Eye pain ENT: Reports: Dental pain. Denies: Congestion, Ear pain Respiratory: Denies: Cough, Dyspnea Cardiovascular: Denies: Chest pain, Dyspnea on exertion Endocrine: Denies: Fatigue, Heat or cold intolerance Gastrointestinal: Denies: Abdominal pain, Nausea, Vomiting Genitourinary: Denies: Incontinence, Retention Musculoskeletal: Denies: Arthralgia, Back pain Skin: Denies: Bruising, Change in color Neurological: Denies: Abnormal gait, Confusion, Headache, Seizure Psychiatric: Denies: Anxiety Hematological/Lymphatic: Denies: Anemia, Blood Clots Past Medical History - SOCIAL HISTORY Smoking Status: Light tobacco smoker (<10/day) Drug Use: None - RESPIRATORY Hx Respiratory Disorders: Yes Hx Asthma: Yes Comment:: cough x3 months - CARDIOVASCULAR Hx Cardio Disorders: No - NEURO Hx Neuro Disorders: No - GI Hx GI Disorders: Yes Hx Crohn's Disease: Yes Hx Rectal Bleeding: Yes Comment:: ulcerative colitis - Hx Genitourinary Disorders: No - ENDOCRINE Hx Endocrine Disorders: No Hx Thyroid Disease: (?hypothyroid) - MUSCULOSKELETAL Hx Musculoskeletal Disorders: No - PSYCH Hx Psych Problems: No - HEMATOLOGY/ONCOLOGY Hx Hematology/Oncology Disorders: Yes Hx Anemia: Yes (Iron def.) Hx Blood Transfusions: No Family Medical History Hx Cancer: Grandparents Hx Heart Disease: Father Physical Exam - General General Appearance: Alert, Oriented x3, Cooperative, Mild distress Limitations: No limitations - Head Head exam: Atraumatic, Normocephalic, Normal inspection Head exam detail: negative: Abrasion, Contusion, Og's sign, General tenderness, Hematoma, Laceration - Eye Eye exam: Normal appearance. negative: Conjunctival injection, Periorbital swelling, Periorbital tenderness, Scleral icterus - ENT Ear exam: negative: Auricular hematoma, Auricular trauma Nasal Exam: negative: Active bleeding, Discharge, Dried blood, Foreign body Mouth exam: negative: Drooling, Laceration, Muffled voice, Tongue elevation Teeth exam: Dental caries, Dental tenderness #, Fractured tooth # Throat exam: negative: Tonsillar erythema, Tonsillomegaly, R peritonsillar mass , L peritonsillar mass Image of Mouth/Teeth: 1 - Dental fracture present, no gingival abscess is present - Neck Neck exam: Normal inspection. negative: Meningismus, Tenderness - Respiratory Respiratory exam: Normal lung sounds bilaterally. negative: Rales, Respiratory distress, Rhonchi, Stridor - Cardiovascular Cardiovascular Exam: Regular rate, Normal rhythm, Normal heart sounds - GI/Abdominal GI/Abdominal exam: Soft - Rectal Rectal exam: Deferred - exam: Deferred - Extremities Extremities exam: Normal inspection. negative: Calf tenderness, Pedal edema, Tenderness - Back Back exam: Denies: CVA tenderness (R), CVA tenderness (L) - Neurological Neurological exam: Alert, Normal gait, Oriented X3 - Psychiatric Psychiatric exam: Normal affect, Normal mood - Skin Skin exam: Normal color. negative: Abrasion Type of lesion: negative: abrasion Course - Reevaluation(s) Reevaluation #1: 02/12/17 20:32 Symptoms are consistent with dental caries/fracture without gingival abscess, patient appears stable for discharge on Penicllin VK and Naprosyn for her symptoms with instructions to follow-up with [facility] or a Dentist from the referral list. Disposition Disposition: Discharge Clinical Impression: Dental caries Disposition: Home, Self-Care Condition: (2) Stable Instructions: Dental Abscess (ED) Additional Instructions: Return to ED if your symptoms worsen or if you have any concerns. Clindamycin and Naprosyn as directed. Follow-up with your Dentist or a dentist from the referral form in 3-5 days as directed. Prescriptions: Clindamycin HCl 300 mg PO TID #21 capsule Naproxen [Naprosyn] 500 mg PO Q12H #30 tab.dr Forms: Patient Portal Access Time of Disposition: 20:29
[2017-02-12] MEDS ORDERED: NAPROXEN 250 MG TABLET PO ONE (20:38)
[2017-02-12] MEDS ORDERED: PENICILLIN V POTASSIUM 250 MG TAB PO ONE (20:38)
[2017-02-12] MEDS ORDERED: CLINDAMYCIN 150 MG CAP PO ONE (20:41)
== END 2017-02-12 20:49 | disposition home or self-care (01) ==
LOC: ER 20:01
DX: K02.9 Dental caries, unspecified (principal)
CPT/HCPCS: 99282

== ENCOUNTER 2017-05-29 22:52 | Emergency (ER) | payer MEDICAID ==
[2017-05-29] MEDS ORDERED: HYDROMORPHONE HCL 1MG/ML **SYRINGE IVP ONE (23:40)
[2017-05-29] MEDS ORDERED: ONDANSETRON HCL IV 4 MG/2 ML VIAL IVP ONE (23:40)
[2017-05-29] MEDS ORDERED: CLINDAMYCIN (PEDIATRIC DOSING) 600 MG in 0.9 % SODIUM CHLORIDE 100ML 100 ML IV ONE (23:40)
[2017-05-29 23:54] LABS: BASO % 0.5 % (0-6); EOS % 3.4 % (0-6); GRAN % 66.4 % (47-80); HEMATOCRIT 41.1 % (35.0-47.0); HEMOGLOBIN 14.1 gm/dl (11.6-16.0); MEAN CELL VOLUME 89.2 fl (81-97); MEAN CORPUSCULAR HEMOGLOBIN 30.6 pg (27-33); MEAN CORPUSCULAR HGB CONC 34.3 g/dl (32-36); MONO % 5.7 % (0-9); PLATELET COUNT 369 K/uL (130-400); RED BLOOD COUNT 4.61 M/uL (3.80-5.40); RED CELL DISTRIBUTION WIDTH 14.1 % (11.5-14.5); WHITE BLOOD COUNT W/O DIFF 12.1 K/uL (4.2-12.2)
[2017-05-30] MEDS ORDERED: HYDROMORPHONE HCL 1MG/ML **SYRINGE IVP ONE (00:06)
[2017-05-30] MEDS ORDERED: HYDROCODONE/APAP 5/325MG TABLET PO ONE (00:48)
--- NOTE | 2017-05-30 00:55 | Emergency Department Record ---
History of Present Illness - General Chief complaint: ENT Stated complaint: LEFT EAR PAIN Time Seen by Provider: 05/29/17 23:11 Source: Patient Mode of Arrival: Ambulatory Limitations: No limitations - History of Present Illness Initial comments: pt gota new piercing through the cartilage of her l ear which now has increased pain, swelling and drainage. the entire ear hurts and is red w slight swelling over cartilage. piercing is still in MD complaint: Ear pain Onset/Timin -: Days(s) Location: L ear Severity: Mild Severity scale (1-10): 8 Quality: Aching Consistency: Constant Improves with: None Worsens with: None Context-Epistaxis: Other - Related Data Previous Rx's Medication Instructions Recorded Clindamycin HCl 150 mg PO TID #21 capsule 05/30/17 Clindamycin HCl [Cleocin HCl] 300 mg PO TID #21 capsule 05/30/17 Hydrocodone/Acetaminophen [[place] 1 each PO Q6HR #10 tablet 05/30/17 5-325 Tablet] Allergies Allergy/AdvReac Type Severity Reaction Status Date / Time codeine Allergy Intermediate HIVES Verified 08/28/16 17:48 morphine Allergy Intermediate VOMITING Verified 08/28/16 17:48 Penicillins Allergy Unknown PT UNSURE Verified 08/28/16 17:48 OF REACTION Travel Screening - Travel/Exposure Within Last 30 Days Have you traveled within the last 30 days?: No - Travel/Exposure Within Last Year Have you traveled outside the [place] in the last year?: No - Additonal Travel Details Have you been exposed to anyone with a communicable illness?: No - Travel Symptoms Symptom Screening: None Review of Systems Reviewed: No additional complaints except as noted below Constitutional: Reports: As per HPI. Denies: Chills, Fever, Malaise, Night sweats, Weakness, Weight change Eyes: Reports: As per HPI. Denies: Eye discharge, Eye pain, Photophobia, Vision change ENT: Reports: As per HPI. Denies: Congestion, Dental pain, Ear pain, Epistaxis , Hearing loss, Throat pain Respiratory: Reports: As per HPI. Denies: Cough, Dyspnea, Hemoptysis, Stridor, Wheezes Cardiovascular: Reports: As per HPI. Denies: Arrhythmia, Chest pain, Dyspnea on exertion, Edema, Murmurs, Orthopnea, Palpitations, Paroxysmal nocturnal dyspnea, Rheumatic Fever, Syncope Endocrine: Reports: As per HPI. Denies: Fatigue, Heat or cold intolerance, Polydipsia, Polyuria Gastrointestinal: Reports: As per HPI. Denies: Abdominal pain, Constipation, Diarrhea, Hematemesis, Hematochezia, Melena, Nausea, Vomiting Genitourinary: Reports: As per HPI. Denies: Abnormal menses, Discharge, Dyspareunia, Dysuria, Frequency, Hematuria, Incontinence, Retention, Urgency Musculoskeletal: Reports: As per HPI. Denies: Arthralgia, Back pain, Gout, Joint swelling, Myalgia, Neck pain Skin: Reports: As per HPI. Denies: Bruising, Change in color, Change in hair/ nails, Lesions, Pruritus, Rash Neurological: Reports: As per HPI. Denies: Abnormal gait, Confusion, Headache, Numbness, Paresthesias, Seizure, Tingling, Tremors, Vertigo, Weakness Psychiatric: Reports: As per HPI. Denies: Anxiety, Auditory hallucinations, Depression, Homicidal thoughts, Suicidal thoughts, Visual hallucinations Hematological/Lymphatic: Reports: As per HPI. Denies: Anemia, Blood Clots, Easy bleeding, Easy bruising, Swollen glands Past Medical History - SOCIAL HISTORY Smoking Status: Light tobacco smoker (<10/day) Alcohol Use: None Drug Use: None - RESPIRATORY Hx Respiratory Disorders: Yes Hx Asthma: Yes Comment:: cough x3 months - CARDIOVASCULAR Hx Cardio Disorders: No - NEURO Hx Neuro Disorders: No - GI Hx GI Disorders: Yes Hx Crohn's Disease: Yes Hx Rectal Bleeding: Yes Comment:: ulcerative colitis - Hx Genitourinary Disorders: No - ENDOCRINE Hx Endocrine Disorders: No Hx Thyroid Disease: (?hypothyroid) - MUSCULOSKELETAL Hx Musculoskeletal Disorders: No - PSYCH Hx Psych Problems: No - HEMATOLOGY/ONCOLOGY Hx Hematology/Oncology Disorders: Yes Hx Anemia: Yes (Iron def.) Hx Blood Transfusions: No Family Medical History Any Significant Family History?: No Hx Cancer: Grandparents Hx Heart Disease: Father Physical Exam - General General Appearance: Alert, Oriented x3, Cooperative, Mild distress - Head Head exam: Normal inspection - Eye Eye exam: Normal appearance, PERRL, EOMI Pupils: Normal accommodation - ENT ENT exam: Normal exam, Mucous membranes moist, Normal external ear exam, Normal orophraynx, TM's normal bilaterally Ear exam: External canal tenderness, Other (swelling of ear with erythema and drainage). negative: Normal external inspection Nasal Exam: Normal inspection. negative: Discharge, Sinus tenderness Mouth exam: Normal external inspection, Tongue normal Teeth exam: Normal inspection. negative: Dental caries Throat exam: Normal inspection. negative: Tonsillar erythema, Tonsillar exudate - Neck Neck exam: Normal inspection, Full ROM. negative: Tenderness - Respiratory Respiratory exam: Normal lung sounds bilaterally. negative: Respiratory distress - Cardiovascular Cardiovascular Exam: Regular rate, Normal rhythm, Normal heart sounds - GI/Abdominal GI/Abdominal exam: Soft, Normal bowel sounds. negative: Tenderness - Rectal Rectal exam: Deferred - exam: Deferred - Extremities Extremities exam: Normal inspection, Full ROM, Normal capillary refill. negative: Tenderness - Back Back exam: Reports: Normal inspection, Full ROM. Denies: Muscle spasm, Rash noted, Tenderness - Neurological Neurological exam: Alert, CN II-XII intact, Normal gait, Oriented X3 - Psychiatric Psychiatric exam: Normal affect, Normal mood - Skin Skin exam: Dry, Intact, Normal color, Warm Course Vital Signs 05/29/17 22:55 Temperature 99.1 F Pulse Rate 93 H Respiratory 20 Rate Blood Pressure 132/95 Pulse Ox 100 - Reevaluation(s) Reevaluation #1: 05/30/17 01:02 piercing was removed Medical Decision Making - Lab Data Result diagrams: 05/29/17 23:42 Lab Results 05/29/17 Range/Units 23:42 WBC 12.1 (4.2-12.2) K/uL RBC 4.61 (3.80-5.40) M/uL Hgb 14.1 (11.6-16.0) gm/dl Hct 41.1 (35.0-47.0) % MCV 89.2 (81-97) fl MCH 30.6 (27-33) pg MCHC 34.3 (32-36) g/dl RDW 14.1 (11.5-14.5) % Plt Count 369 (130-400) K/uL MPV 10.0 (7.4-10.4) fl Gran % 66.4 (47-80) % Lymphocytes % 24.0 (16-45) % Monocytes % 5.7 (0-9) % Eosinophils % 3.4 (0-6) % Basophils % 0.5 (0-6) % Disposition Disposition: Discharge Clinical Impression: Complication of left ear piercing Qualifiers: Encounter type: initial encounter Qualified Code(s): S01.332A - Puncture wound without foreign body of left ear, initial encounter Disposition: Home, Self-Care Condition: (1) Good Instructions: Pierced [place] Infection (ED) Additional Instructions: recheck tomorrow. return sooner if worse. keep piercing out. follow up with dr wright. moist heat to ear Prescriptions: Hydrocodone/Acetaminophen [[place] 5-325 Tablet] 1 each PO Q6HR #10 tablet Clindamycin HCl 150 mg PO TID #21 capsule Clindamycin HCl [Cleocin HCl] 300 mg PO TID #21 capsule Referrals: JOSSY WRIGHT [DOCTOR OF OSTEOPATH] - Forms: Patient Portal Access Quality - Quality Measures Quality Measures: N/A - Blood Pressure Screening Does Patient Have Any of the Following: No Blood Pressure Classification: Hypertensive Reading Systolic Measurement: 132 Diastolic Measurement: 95 Screening for High Blood Pressure: < Pre-Hypertensive BP, F/U Documented > [ G8950] Pre-Hypertensive Follow-up Interventions: Follow-up with rescreen every year.
== END 2017-05-30 01:18 | disposition home or self-care (01) ==
LOC: ER 22:52
DX: S00.452A Superficial foreign body of left ear, initial encounter (principal); W45.8XXA Other foreign body or object entering through skin, initial encounter
CPT/HCPCS: 99283 ×2; 85025; J2405; J1170 ×2

== ENCOUNTER 2017-12-21 21:22 | Inpatient (IN) | payer MEDICAID ==
[2017-12-21] MEDS ORDERED: 0.9 % SODIUM CHLORIDE 1,000 ML BAG IV ONE (21:38)
--- NOTE | 2017-12-21 21:45 | Emergency Department Record ---
History of Present Illness - General Chief Complaint: Abdominal Pain Stated Complaint: PASSED OUT AT WORK, ABDOMINAL PAIN Time Seen by Provider: 12/21/17 21:26 Source: Patient Mode of Arrival: Ambulatory Limitations: No limitations - History of Present Illness Initial Comments: 22 yo female presents from work after getting lightheaded and dizzy causing her to possibly pass out. She states she has Crohn's disease that gives her abdominal pain with bloody stools. She was seen in the [facility] ED and then by her doctor to start steroids in the last 4 days but she is not better. She states she was at work and became lightheaded from the pain, nauseated and possible brief LOC. No vomiting. NO chest pain. She saw her PCP on Friday. She went to the [facility] ED prior to coming to this ED. She states they did not help her because she was crying too hard. Her colonoscopy demonstrated colitis of the rectum and cecum with spots in the ascending and descending colon. She states last saw GI at [facility] in October. She thinks she saw Dr Romo. She was given a prescription for Mesalamine on Friday but the pharmacy has to order it and it is not available. She states Mesalamine did not work in the past for her Crohn' s. MD Complaint: Abdominal pain, Other (syncope) -: Hour(s) Location: Diffuse Radiation: Epigastric Migration to: Epigastric Severity: Moderate Quality: Aching Consistency: Constant Improves With: Nothing Worsens With: Eating Associated Symptoms: Anorexia, Hematochezia - Related Data Previous Rx's Medication Instructions Recorded Dicyclomine HCl [Bentyl] 10 mg PO Q8H #20 cap 12/15/17 Prednisone [Prednisone 10Mg] 10 mg PO BID #10 tab 12/15/17 Allergies Allergy/AdvReac Type Severity Reaction Status Date / Time codeine Allergy Intermediate HIVES Verified 08/28/16 17:48 morphine Allergy Intermediate VOMITING Verified 08/28/16 17:48 Penicillins Allergy Unknown PT UNSURE Verified 08/28/16 17:48 OF REACTION ketorolac [From Toradol] Allergy RASH Verified 12/21/17 22:17 haloperidol [From Haldol] AdvReac BEHAVIORAL Verified 12/15/17 14:53 CHANGES Review of Systems Constitutional: Denies: Chills, Fever, Malaise, Weakness Eyes: Denies: Eye discharge, Eye pain, Photophobia, Vision change ENT: Denies: Congestion, Throat pain Respiratory: Denies: Cough, Dyspnea, Hemoptysis, Stridor, Wheezes Cardiovascular: Reports: As per HPI, Syncope. Denies: Chest pain, Palpitations Gastrointestinal: Reports: As per HPI, Abdominal pain, Hematochezia, Nausea. Denies: Constipation, Hematemesis, Vomiting Genitourinary: Denies: Abnormal menses Musculoskeletal: Denies: Arthralgia, Back pain, Myalgia, Neck pain Neurological: Denies: Confusion, Headache Psychiatric: Denies: Anxiety Hematological/Lymphatic: Denies: Blood Clots, Easy bleeding, Easy bruising, Swollen glands Past Medical History - SOCIAL HISTORY Smoking Status: Light tobacco smoker (<10/day) Drug Use: None - RESPIRATORY Hx Respiratory Disorders: Yes Hx Asthma: Yes Comment:: cough x3 months - CARDIOVASCULAR Hx Cardio Disorders: No - NEURO Hx Neuro Disorders: No - GI Hx GI Disorders: Yes Hx Crohn's Disease: Yes Hx Rectal Bleeding: Yes Comment:: ulcerative colitis - Hx Genitourinary Disorders: No - ENDOCRINE Hx Endocrine Disorders: No Hx Thyroid Disease: (?hypothyroid) - MUSCULOSKELETAL Hx Musculoskeletal Disorders: No - PSYCH Hx Psych Problems: No - HEMATOLOGY/ONCOLOGY Hx Hematology/Oncology Disorders: Yes Hx Anemia: Yes (Iron def.) Hx Blood Transfusions: No Family Medical History Hx Cancer: Grandparents Hx Heart Disease: Father Physical Exam - General General Appearance: Alert, Oriented x3, Cooperative, Anxious, Other (tearful) Limitations: No limitations (no limitations, no confusion, good historian ) - Head Head exam: Atraumatic, Normocephalic, Normal inspection - Eye Eye exam: Normal appearance, PERRL. negative: Conjunctival injection, Scleral icterus - ENT ENT exam: Normal exam, Mucous membranes moist Ear exam: Normal external inspection Nasal Exam: Normal inspection Mouth exam: Normal external inspection Teeth exam: Normal inspection - Neck Neck exam: Normal inspection, Full ROM. negative: Tenderness - Respiratory Respiratory exam: Normal lung sounds bilaterally. negative: Respiratory distress, Rhonchi, Stridor, Wheezes - Cardiovascular Cardiovascular Exam: Regular rate, Normal rhythm, Normal heart sounds - GI/Abdominal GI/Abdominal exam: Soft, Tenderness (soft but diffuse tenderness). negative: Distended, Guarding, Rebound, Rigid - Rectal Rectal exam: Deferred - exam: Deferred - Extremities Extremities exam: Normal inspection - Back Back exam: Reports: Normal inspection, Full ROM. Denies: Muscle spasm, Rash noted, Tenderness - Neurological Neurological exam: Alert, Normal gait, Oriented X3, Reflexes normal - Psychiatric Psychiatric exam: Anxious - Skin Skin exam: Dry, Intact, Normal color, Warm Course - Reevaluation(s) Reevaluation #1: EKG 21:56 Rate is 81, intervals are normal, axis is normal, ST normal. Normal QT and no WPW. No ectopy. No old. 12/21/17 22:01 No acute changes on the vitals 12/21/17 22:05 The CBC was reviewed WBC is 15.8 likely increased due to starting steroids on Friday The Hgb is 15.1. No signs of anemia from her chronic bleeding from Crohn's 12/21/17 22:28 [facility] records reviewed 10/20/17 colonoscopy reviewed. active colitis rectum and cecum with discrete ascending and descending colon spots CT scan 07/23/17 No acute process of the abdomen or pelvis HGB vitals reviewed. No acute changes. 12/21/17 22:33 The 12/15/17 HGB ED visit was reviewed Improved Hgb today from 12/15/17 The patient was given a prescription for oxycodone at that time. 12/21/17 22:35 The CMP was negative for acute changes The Glucose is 102. She does have a past history of hyperglycemia while on steroids. 12/21/17 22:36 The HCG is negative The Lipase is normal. 12/21/17 22:58 MAPS was completed on the patient as she has refused specific medications and requested certain medications She filled 45 Oxycodone on 12/19/17 and 16 Oxycodone on 12/15/17 She did fill RX in November, and 2 in October for Oxycodone 12/21/17 23:24 Given her persistent pain in spite of outpatient oral pain medication and recent initiation of steroids. She will be admitted OBV, given dose of IV steroids and consult GI that is at [facility] on Friday. 12/22/17 00:01 Floor called twice for report. Will transfer when floor RN available Medical Decision Making - Lab Data Result diagrams: 12/21/17 21:48 12/21/17 21:48 Disposition Disposition: Admit Clinical Impression: Near syncope Abdominal pain Qualifiers: Abdominal location: unspecified location Qualified Code(s): R10.9 - Unspecified abdominal pain Crohn disease Qualifiers: Gastrointestinal tract location: unspecified location Digestive disease complication type: unspecified complication Qualified Code(s): K50.919 - Crohn' s disease, unspecified, with unspecified complications Crohn's colitis Qualifiers: Digestive disease complication type: unspecified complication Qualified Code(s) : K50.119 - Crohn's disease of large intestine with unspecified complications Disposition: Still a Patient at [facility] Decision to Admit: Admit from ER Decision to Admit Date: 12/21/17 Decision to Admit Time: 23:24 Condition: (1) Good Time of Disposition: 23:24 Quality - Quality Measures Quality Measures: N/A - Blood Pressure Screening Does Patient Have Any of the Following: No Blood Pressure Classification: Pre-Hypertensive BP Reading Systolic Measurement: 124 Diastolic Measurement: 83 Screening for High Blood Pressure: < Pre-Hypertensive BP, F/U Documented > [ G8950] Pre-Hypertensive Follow-up Interventions: Referral to alternative/primary care provider.
[2017-12-21 21:57] LABS: BASO % 0.4 % (0-6); EOS % 5.5 % (0-6); GRAN % 61.9 % (47-80); HEMATOCRIT 44.6 % (35.0-47.0); HEMOGLOBIN 15.1 gm/dl (11.6-16.0); MEAN CELL VOLUME 92.5 fl (81-97); MEAN CORPUSCULAR HEMOGLOBIN 31.3 pg (27-33); MEAN CORPUSCULAR HGB CONC 33.9 g/dl (32-36); MEAN PLATELET VOLUME 9.6 fl (7.4-10.4); MONO % 6.2 % (0-9); PLATELET COUNT 469 K/uL (130-400); RED BLOOD COUNT 4.82 M/uL (3.80-5.40); RED CELL DISTRIBUTION WIDTH 12.7 % (11.5-14.5); WHITE BLOOD COUNT W/O DIFF 15.8 K/uL (4.2-12.2)
[2017-12-21] MEDS ORDERED: KETOROLAC 30 MG/ML VIAL IVP ONE (22:04)
[2017-12-21] MEDS ORDERED: ACETAMINOPHEN 1,000 MG/100 ML BTL IVPB ONE (22:04)
[2017-12-21 22:06] LABS: BLOOD UREA NITROGEN 9 mg/dL (6-20); CREATININE 0.7 mg/dL (0.5-0.9); EST GLOMERULAR FILTRATION RATE > 60 mL/min
[2017-12-21 22:07] LABS: TOTAL PROTEIN 8.3 g/dL (6.6-8.7)
[2017-12-21 22:09] LABS: GLUCOSE,RANDOM 102 mg/dL (74-109)
[2017-12-21 22:11] LABS: ALT/SGPT 14 U/L (<33)
[2017-12-21 22:12] LABS: ALB/GLOB RATIO 1.6 (1.1-1.8); ALBUMIN 5.1 g/dL (4.0-5.0); ALKALINE PHOSPHATASE 100 U/L (35-104); AST/SGOT 19 U/L (10.0-35.0); LIPASE 39 U/L (13-60)
[2017-12-21 22:23] LABS: URINE APPEARANCE CLEAR; URINE BILIRUBIN NEGATIVE (NEGATIVE); URINE BLOOD NEGATIVE (NEGATIVE); URINE COLOR YELLOW; URINE GLUCOSE (UA) NEGATIVE (NEGATIVE); URINE KETONE TRACE (NEGATIVE); URINE LEUKOCYTE ESTERASE NEGATIVE (NEGATIVE); URINE NITRITE NEGATIVE (NEGATIVE); URINE PROTEIN NEGATIVE (NEGATIVE); URINE UROBILINOGEN 0.2 E.U./dL (0.20 - 1.00)
[2017-12-22] MEDS ORDERED: ACETAMINOPHEN 325 MG TAB PO PRN (00:50)
[2017-12-22] MEDS ORDERED: HYDROMORPHONE HCL 2 MG/ML VIAL IVP PRN (00:50)
[2017-12-22] MEDS ORDERED: ONDANSETRON HCL IV 4 MG/2 ML VIAL IVP PRN (00:50)
[2017-12-22] MEDS: 0.9 % SODIUM CHLORIDE 1000ML 1,000 ML IV PRN ×3 (01:45→09:39)
[2017-12-22] MEDS: METHYLPREDNISOLONE PF 125MG/VIAL IVP SCH ×2 (02:00→07:44)
[2017-12-22] MEDS: HYDROMORPHONE HCL 2 MG/ML VIAL IVP PRN ×4 (03:25→13:43)
--- NOTE | 2017-12-22 06:28 | History & Physical ---
History of Present Illness - Date of Service Date of Service for History & Physical: 12/22/17 - History of Present Illness Admitting Diagnosis: abdominal pain, GI bleed, syncope History of Present Illness: 22 yo female admitted for abd pain. PMHx of UC. Patient has been to [facility] ED multiple times since . She was seen by Dr. Carolina bower on bentyl 10 mg Q8H and prednisone 10 mg bid x 5 days. She returned as abd pain, rectal bleeding and nausea continued. According to patient, she also became dizzy and loss consciousness at work. Upon presentation, VSS. WBC 15.1 (on steroids), lipase, CMP normal. Serum test negative. UA negative for infection. EKG: NSR, none previous. She was started on 40 mg of IV Solu Medrol Q6H, IVFs, 1 mg of IV Dilaudid Q4H and Zofran. Admitted with GI consult for further medical management. 12/22/17- Patient lying in bed comfortably. Though, states abd pain is 9/10 in severity. Denies fever, chills, vomiting, diarrhea, lightheadedness, headache, melena, unintentional weight loss, or cough. C/o constant lower abd stabbing/ cramping. Aggravated by food, movement. Alleviated, minimally by pain medication, fasting. Associated symptoms include hematochezia, nausea. Last BM was 12/21/16. Has not vomited in over 24 hours. States she was diagnosed with Crohn's colitis and UC in 2013. Most recent colonoscopy in Oct 2017 colitis throughout, including proctitis, TI sparred. Abdominal CT 07/2017: no acute process of abd/pelvis. Last admission for IBD flare at [facility] in Oct 2017. States she was started on Lialda 4.8 daily and canasa supp. It appears patient received a short script prior to d/c, however has not been on mesalamine since. Patient saw her PCP this past friday. She was started on PO steroid, oxycodone for pain and short acting insulin for steroid induced hyperglycemia. She has not seen [facility] on an outpatient basis in over a year. Word Processor: [facility] (colonoscopy by Dr. Romo) PCP: Dr. Frances Travel Screening - Travel/Exposure Within Last 30 Days Have you traveled within the last 30 days?: No - Travel/Exposure Within Last Year Have you traveled outside the [place] in the last year?: No - Additonal Travel Details Have you been exposed to anyone with a communicable illness?: No - Travel Symptoms Symptom Screening: None Review of Systems Constitutional: Denies: Chills, Fever, Malaise, Weakness Eyes: Denies: Eye discharge, Eye pain, Photophobia, Vision change ENT: Denies: Congestion, Throat pain Respiratory: Denies: Cough, Dyspnea, Hemoptysis, Stridor, Wheezes Cardiovascular: Reports: As per HPI, Syncope. Denies: Chest pain, Palpitations Gastrointestinal: Reports: As per HPI, Hematochezia, Nausea. Denies: Abdominal pain, Constipation, Hematemesis, Vomiting Genitourinary: Denies: Abnormal menses Musculoskeletal: Denies: Arthralgia, Back pain, Myalgia, Neck pain Neurological: Denies: Confusion, Headache Psychiatric: Denies: Anxiety Hematological/Lymphatic: Denies: Blood Clots, Easy bleeding, Easy bruising, Swollen glands Past Medical History - SOCIAL HISTORY Smoking Status: Light tobacco smoker (<10/day) Drug Use: None - RESPIRATORY Hx Respiratory Disorders: Yes Hx Asthma: Yes Comment:: cough x3 months - CARDIOVASCULAR Hx Cardio Disorders: No - NEURO Hx Neuro Disorders: No - GI Hx GI Disorders: Yes Hx Crohn's Disease: Yes Hx Rectal Bleeding: Yes Comment:: ulcerative colitis - Hx Genitourinary Disorders: No - ENDOCRINE Hx Endocrine Disorders: No Hx Thyroid Disease: (?hypothyroid) - MUSCULOSKELETAL Hx Musculoskeletal Disorders: No - PSYCH Hx Psych Problems: No - HEMATOLOGY/ONCOLOGY Hx Hematology/Oncology Disorders: Yes Hx Anemia: Yes (Iron def.) Hx Blood Transfusions: No Family Medical History Hx Cancer: Grandparents Hx Heart Disease: Father H&P Meds/Allergies - Allergies Allergies: Allergies Allergy/AdvReac Type Severity Reaction Status Date / Time codeine Allergy Intermediate HIVES Verified 08/28/16 17:48 morphine Allergy Intermediate VOMITING Verified 08/28/16 17:48 Penicillins Allergy Unknown PT UNSURE Verified 08/28/16 17:48 OF REACTION ketorolac [From Toradol] Allergy RASH Verified 12/21/17 22:17 haloperidol [From Haldol] AdvReac BEHAVIORAL Verified 12/15/17 14:53 CHANGES - Home Medications Previous Rx's Medication Instructions Recorded Dicyclomine HCl [Bentyl] 10 mg PO Q8H #20 cap 12/15/17 Prednisone [Prednisone 10Mg] 10 mg PO BID #10 tab 12/15/17 - Active Medications Active Medications: Current Medications Acetaminophen (Tylenol 325mg) 650 mg PO Q6H PRN PRN Reason: PAIN/TEMP Hydromorphone HCl (Dilaudid) 1 mg IVP Q4H PRN PRN Reason: Abdominal Pain Last Admin: 12/22/17 05:40 Dose: 1 mg Sodium Chloride () 1,000 mls @ 125 mls/hr IV .Q8H PRN PRN Reason: LARGE VOLUME IV Last Admin: 12/22/17 02:02 Dose: 125 mls/hr Methylprednisolone Sodium Succinate (Solu-Medrol) 40 mg IVP Q6H JACINTO Last Admin: 12/22/17 02:00 Dose: 40 mg Ondansetron HCl (Zofran) 4 mg IVP Q6H PRN PRN Reason: NAUSEA Physical Exam - Vital Signs Vital Signs: Vital Signs - Last 24 Hrs Temp Pulse Resp BP Pulse Ox 12/22/17 00:50 98.0 F 85 18 129/74 99 12/22/17 00:35 98.2 F 77 18 120/87 100 - General General Appearance: Alert, Oriented x3, Cooperative, No acute distress Limitations: No limitations - Head Head exam: Atraumatic, Normocephalic, Normal inspection - Eye Eye exam: Normal appearance, PERRL. negative: Conjunctival injection, Scleral icterus - ENT ENT exam: Normal exam, Mucous membranes moist Ear exam: Normal external inspection Nasal Exam: Normal inspection Mouth exam: Normal external inspection Teeth exam: Normal inspection - Neck Neck exam: Normal inspection, Full ROM. negative: Tenderness - Respiratory Respiratory exam: Normal lung sounds bilaterally. negative: Respiratory distress, Rhonchi, Stridor, Wheezes - Cardiovascular Cardiovascular Exam: Regular rate, Normal rhythm, Normal heart sounds - GI/Abdominal GI/Abdominal exam: Soft, Tenderness (soft but diffuse tenderness, sudha lower abd) . negative: Distended, Guarding, Rebound, Rigid - Rectal Rectal exam: Deferred - exam: Deferred - Extremities Extremities exam: Normal inspection - Back Back exam: Reports: Normal inspection, Full ROM. Denies: Muscle spasm, Rash noted, Tenderness - Neurological Neurological exam: Alert, Normal gait, Oriented X3, Reflexes normal - Psychiatric Psychiatric exam: Anxious - Skin Skin exam: Dry, Intact, Normal color, Warm Results - Labs Result Diagrams: 12/22/17 06:20 12/22/17 06:20 VTE H&P Assessment - Risk for VTE Risk for VTE: Yes Risk Level: Low Risk Assessment Date: 12/22/17 Risk Assessment Time: 11:00 VTE Orders Placed or Will Be Placed: Yes Plan - Detailed Diagnosis and Plan (1) Hematochezia Current Visit: Yes Status: Acute Base Code: K92.1 - MELENA (2) Abdominal pain Current Visit: Yes Status: Acute Qualifiers: Abdominal location: unspecified location Qualified Code(s): R10.9 - Unspecified abdominal pain Base Code: R10.9 - UNSPECIFIED ABDOMINAL PAIN Comment: 12/22/17 - colitis vs. functional vs. other? - normal wbc, afebrile, CRP/ESR normal - will start mesalamine 4000 mg qd - solu medrol 40 mg daily - hold dilaudid and start percocet 10/325 mg Q4H prn (3) Colitis Current Visit: No Status: Acute Base Code: K52.9 - NONINFECTIVE GASTROENTERITIS AND COLITIS, UNSPECIFIED Comment: 12/22/17 - 10/2017- colitis throughout, proctitis, TI spared - CRP, ESR ordered - change IV Solu Medrol to 40 mg daily - add mesalamine 1000 mg qid - will attempt to transition to PO pain control - IVF - CLD (4) DVT prophylaxis Current Visit: No Status: Acute Base Code: [id number] - Comment: 12/22/17 - scd's wib - ambulation as tolerated - will encourage ambulation, due to active bleed will hold off on proph anticoag (5) Full code status Current Visit: Yes Status: Acute Base Code: Z78.9 - OTHER SPECIFIED HEALTH STATUS Comment: 12/22/17 - FULL CODE (6) Hyperglycemia Current Visit: Yes Status: Acute Base Code: R73.9 - HYPERGLYCEMIA, UNSPECIFIED Comment: 12/21/17 - secondary to steroid use - will start moderate sliding scale - IVF's, CLD
[2017-12-22 06:29] LABS: HEMATOCRIT 38.7 % (35.0-47.0); HEMOGLOBIN 12.9 gm/dl (11.6-16.0); LYMPH % 7.4 % (16-45); MEAN CELL VOLUME 94.2 fl (81-97); MEAN CORPUSCULAR HEMOGLOBIN 31.4 pg (27-33); MEAN CORPUSCULAR HGB CONC 33.3 g/dl (32-36); MEAN PLATELET VOLUME 9.7 fl (7.4-10.4); MONO % 0.3 % (0-9); PLATELET COUNT 360 K/uL (130-400); RED BLOOD COUNT 4.11 M/uL (3.80-5.40); RED CELL DISTRIBUTION WIDTH 12.6 % (11.5-14.5); WHITE BLOOD COUNT W/O DIFF 7.1 K/uL (4.2-12.2)
[2017-12-22 06:40] LABS: BLOOD UREA NITROGEN 10 mg/dL (6-20); CREATININE 0.7 mg/dL (0.5-0.9); EST GLOMERULAR FILTRATION RATE > 60 mL/min; GLUCOSE,RANDOM 376 mg/dL (74-109)
[2017-12-22] MEDS: HUMULIN R 100 UNIT/ML VIAL SQ SCH ×2 (12:52→17:37)
[2017-12-22] MEDS ORDERED: MESALAMINE 250 MG CAPSULE.ER PO SCH (14:00)
[2017-12-22] MEDS ORDERED: NICOTINE 21 MG/24 HOUR PATCH TD SCH ×2 (15:00→15:15)
[2017-12-22] MEDS: NICOTINE 7 MG/24 HOUR PATCH TD SCH (15:24)
[2017-12-22] MEDS: OXYCODONE/APAP 10MG-325MG TABLET PO PRN ×2 (17:42→21:40)
[2017-12-22] MEDS: MESALAMINE 500 MG CAPSULE.SA PO SCH ×2 (17:43→21:40)
[2017-12-23] MEDS: OXYCODONE/APAP 10MG-325MG TABLET PO PRN ×5 (01:34→18:55)
[2017-12-23 06:54] LABS: HEMATOCRIT 38.9 % (35.0-47.0); HEMOGLOBIN 12.7 gm/dl (11.6-16.0); MEAN CELL VOLUME 94.9 fl (81-97); MEAN CORPUSCULAR HGB CONC 32.6 g/dl (32-36); MEAN PLATELET VOLUME 9.9 fl (7.4-10.4); PLATELET COUNT 378 K/uL (130-400); RED CELL DISTRIBUTION WIDTH 13.1 % (11.5-14.5)
[2017-12-23 07:02] LABS: BLOOD UREA NITROGEN 9 mg/dL (6-20); CREATININE 0.6 mg/dL (0.5-0.9); EST GLOMERULAR FILTRATION RATE > 60 mL/min; GLUCOSE,RANDOM 143 mg/dL (74-109)
--- NOTE | 2017-12-23 07:31 | CT SCAN REPORT ---
EXAM: CT OF THE ABDOMEN AND PELVIS WITH CONTRAST HISTORY: ABDOMINAL PAIN, HISTORY OF CROHN'S DISEASE. TECHNIQUE: After the administration of intravenous contrast utilizing 100 ml of Omnipaque 300, axial images are obtained from the dome of the diaphragm to the symphysis pubis. FINDINGS: The lung bases and pleural spaces are clear. The liver is unremarkable. The gallbladder is surgically absent. There is no intra or extrahepatic biliary distention. The spleen is normal. The pancreas is within normal limits. No adrenal lesions are seen. The kidneys are free of focal masses, hydronephrosis, or perinephric inflammatory change. There is no mesenteric mass or bowel dilatation. There is no free air or ascites. The pelvis demonstrates the left ovary to be mildly enlarged at 3.3 x 2.8 x 2.7 cm and contain several intermediate sized cysts. There is no free pelvic fluid. There is no adenopathy. The uterus is unremarkable. IMPRESSION: LEFT OVARIAN CYST. THERE IS NO EVIDENCE OF AN ACUTE INTRAABDOMINAL PROCESS. JOB NUMBER: [id number] [facility]
[2017-12-23] MEDS: HUMULIN R 100 UNIT/ML VIAL SQ SCH ×3 (08:55→17:21)
[2017-12-23] MEDS: MESALAMINE 500 MG CAPSULE.SA PO SCH ×3 (09:06→18:55)
--- NOTE | 2017-12-23 09:41 | Physician Progress Note ---
Subjective - Date Date of Physician Progress Note: 12/23/17 Objective - Vital Signs Vital Signs: Vital Signs - Last 24 Hrs Temp Pulse Resp BP Pulse Ox 12/23/17 08:34 20 12/23/17 08:00 97.7 F 81 12 88/45 96 12/22/17 22:22 98.5 F 95 H 18 123/70 97 12/22/17 21:00 16 12/22/17 15:23 98.5 F 90 16 110/69 96 - General General Appearance: Alert, Oriented x3, Cooperative, No acute distress Limitations: No limitations - Head Head exam: Atraumatic, Normocephalic, Normal inspection - Eye Eye exam: Normal appearance, PERRL. negative: Conjunctival injection, Scleral icterus - ENT ENT exam: Normal exam, Mucous membranes moist Ear exam: Normal external inspection Nasal Exam: Normal inspection Mouth exam: Normal external inspection Teeth exam: Normal inspection - Neck Neck exam: Normal inspection, Full ROM. negative: Tenderness - Respiratory Respiratory exam: Normal lung sounds bilaterally. negative: Respiratory distress, Rhonchi, Stridor, Wheezes - Cardiovascular Cardiovascular Exam: Regular rate, Normal rhythm, Normal heart sounds - GI/Abdominal GI/Abdominal exam: Soft, Tenderness (soft but diffuse tenderness, sudha lower abd) . negative: Distended, Guarding, Rebound, Rigid - Rectal Rectal exam: Deferred - exam: Deferred - Extremities Extremities exam: Normal inspection - Back Back exam: Reports: Normal inspection, Full ROM. Denies: Muscle spasm, Rash noted, Tenderness - Neurological Neurological exam: Alert, Normal gait, Oriented X3, Reflexes normal - Psychiatric Psychiatric exam: Anxious - Skin Skin exam: Dry, Intact, Normal color, Warm Assessment and Plan - Assessment and Plan (1) Abdominal pain Current Visit: Yes Status: Acute Qualifiers: Abdominal location: unspecified location Qualified Code(s): R10.9 - Unspecified abdominal pain Base Code: R10.9 - UNSPECIFIED ABDOMINAL PAIN Comment: 12/22/17 - colitis vs. functional vs. other? - normal wbc, afebrile, CRP/ESR normal - will start mesalamine 4000 mg qd - solu medrol 40 mg daily 12/23/17 -WBC increased 24, lactic acid drawn results 2.5 -starting cipro and flagyl -continue mesalamine 1000mg QID -solu medrol 40mg qd -percocet 10/325mg q 4 PRN - hold dilaudid and start percocet 10/325 mg Q4H prn (2) Hematochezia Current Visit: Yes Status: Acute Base Code: K92.1 - MELENA Comment: -pt reports blood in stool at HS with BM but denies difficulty with BM -H/H stable but has decreased since first draw -repeat CBC 1800 (3) Hyperglycemia Current Visit: Yes Status: Acute Base Code: R73.9 - HYPERGLYCEMIA, UNSPECIFIED Comment: 12/21/17 - secondary to steroid use - will start moderate sliding scale - IVF's, CLD 12/23/17 -continue s/s -secondary to steroid use (4) Colitis Current Visit: No Status: Acute Base Code: K52.9 - NONINFECTIVE GASTROENTERITIS AND COLITIS, UNSPECIFIED Comment: 12/22/17 - 10/2017- colitis throughout, proctitis, TI spared - CRP, ESR ordered - change IV Solu Medrol to 40 mg daily - add mesalamine 1000 mg qid - will attempt to transition to PO pain control - IVF - CLD 12/23/17 -pt has advanced diet and tolerating well -continue to c/o pain but does not appear to be in distress, percocet 10/325mg Q4 PRN -continue mesalamine 1000mg QID -continue solu medrol 40mg QD -WBC elevated, starting cipro and flagyl (5) DVT prophylaxis Current Visit: No Status: Acute Base Code: [id number] - Comment: 12/22/17 - scd's wib - ambulation as tolerated - will encourage ambulation, due to active bleed will hold off on proph anticoag 12/23/17 -continue SCD's wib -amb as tolerated -holding on anticoag r/t bleeding in stool (6) Full code status Current Visit: Yes Status: Acute Base Code: Z78.9 - OTHER SPECIFIED HEALTH STATUS Comment: 12/22/17 - FULL CODE 12/23/17 -continue full code status Results - Labs Result Diagrams: 12/23/17 06:23 12/23/17 06:23 Labs Last 24 Hours: Laboratory Results - last 24 hr 12/22/17 12/22/17 12/22/17 12:30 16:01 17:00 WBC RBC Hgb Hct MCV MCH MCHC RDW Plt Count MPV Neutrophils % Eosinophils % Basophils % Lymphocytes Monocytes Sodium Potassium Chloride Carbon Dioxide Anion Gap BUN Creatinine Estimated GFR POC Glucose 230 H Cancelled Random Glucose Lactic Acid Calcium Urine HCG, Qual Negative 12/22/17 12/22/17 12/23/17 17:00 22:00 06:23 WBC 24.0 H* RBC 4.10 Hgb 12.7 Hct 38.9 MCV 94.9 MCH 31.0 MCHC 32.6 RDW 13.1 Plt Count 378 MPV 9.9 Neutrophils % 84.0 H Eosinophils % Not Reportable Basophils % Not Reportable Lymphocytes 13.0 L Monocytes 3.0 Sodium Potassium Chloride Carbon Dioxide Anion Gap BUN Creatinine Estimated GFR POC Glucose 291 H Cancelled Random Glucose Lactic Acid Calcium Urine HCG, Qual 12/23/17 12/23/17 06:23 09:10 WBC RBC Hgb Hct MCV MCH MCHC RDW Plt Count MPV Neutrophils % Eosinophils % Basophils % Lymphocytes Monocytes Sodium 143 Potassium 4.3 Chloride 107 Carbon Dioxide 22.0 Anion Gap 14.0 BUN 9 Creatinine 0.6 Estimated GFR > 60 POC Glucose Random Glucose 143 H Lactic Acid 2.5 H Calcium 8.7 Urine HCG, Qual DVT/PE Assessment - Risk for VTE Risk for VTE: No Risk Level: Low Risk Assessment Date: 12/22/17 Risk Assessment Time: 11:00 VTE Orders Placed or Will Be Placed: Yes - Active Medicaitons Current Medications: Current Medications Acetaminophen (Tylenol 325mg) 650 mg PO Q6H PRN PRN Reason: PAIN/TEMP Sodium Chloride () 1,000 mls @ 125 mls/hr IV .Q8H PRN PRN Reason: LARGE VOLUME IV Last Infusion: 12/22/17 17:44 Dose: Infused Insulin Human Regular (Humulin R) 1 unit SQ TIDAC [facility] PRN Reason: Protocol Last Admin: 12/23/17 08:55 Dose: 4 unit Mesalamine (Pentasa) 1,000 mg PO QID [facility] Last Admin: 12/23/17 09:06 Dose: 1,000 mg Methylprednisolone Sodium Succinate (Solu-Medrol) 40 mg IVP DAILY [facility] Last Admin: 12/23/17 09:07 Dose: 40 mg Nicotine (Nicotine 7mg) 1 patch TD Q24H [facility] Last Admin: 12/22/17 15:24 Dose: 1 patch Ondansetron HCl (Zofran) 4 mg IVP Q6H PRN PRN Reason: NAUSEA Oxycodone/Acetaminophen (Percocet 10-325 Mg Tablet) 1 each PO Q4H PRN PRN Reason: Abdominal Pain Last Admin: 12/23/17 05:44 Dose: 1 each AMI Plan - Labs Result Diagrams: 12/23/17 06:23 12/23/17 06:23
[2017-12-23] MEDS ORDERED: METHYLPREDNISOLONE SOD 40MG/VIAL IVP SCH (10:00)
[2017-12-23] MEDS ORDERED: CIPROFLOXACIN HCL 500 MG TABLET PO SCH (10:00)
[2017-12-23] MEDS: METRONIDAZOLE 250 MG TABLET PO SCH ×2 (10:39→17:22)
--- NOTE | 2017-12-23 12:50 | Medical Records Consult ---
DATE OF CONSULTATION: 12/22/2017 REASON FOR CONSULTATION: History of colitis. HISTORY OF PRESENT ILLNESS: The patient is a pleasant 22-year-old female seen in consultation at the request of the attending physicians for evaluation of colitis and abdominal pain. She apparently presented to the [facility] Emergency Department on 12/21/2017 (yesterday) in the evening. She states that she felt lightheaded and dizzy causing her to possibly pass out. She has also been complaining of abdominal pain with bloody diarrhea. She has been seen in the emergency department previously over the past 4 days but despite starting steroid therapy, she has not improved. She initially denied vomiting; however, on further questioning, she states she has vomited in the recent past. She first went to the emergency department at [facility] and was ultimately discharged from that site. She then returned to this emergency department. She was also admitted at [facility] in October at which time she had a colonoscopy completed by my associated Dr. Romo who found diffuse proctitis and colitis involving the distal 3-5 cm of the sigmoid colon. There was a focal area of moderate inflammation with multiple pseudopolyps in the proximal descending colon near the splenic flexure. There were pseudopolyps noted in the right colon as well with some moderate inflammation at the cecum. The terminal ileum appeared normal. Biopsies revealed active chronic colitis which was moderate at the cecum, ascending colon, descending colon, and rectum. Her main complaint at this time was of diffuse abdominal pain. She states that she is passing multiple loose stools with bright red blood throughout the day. She admits to some pyrosis but has been taking proton pump inhibitor for this. PAST MEDICAL HISTORY: In addition to the above includes diabetes for which she is currently prescribed insulin. She has a history of chronic low back pain. She has a history of ovarian cysts. There is also a history of asthma in the medical record. PAST SURGICAL HISTORY: Previous surgeries include a cholecystectomy in 2012 and a tonsillectomy in 2006. SOCIAL HISTORY: She claims to smoke less than 10 cigarettes daily. She denies illicit drug usage or significant alcohol. MEDICATIONS: 1. NovoLog insulin. 2. Mesalamine suppositories. 3. Nicotine patch. 4. Zofran as needed. 5. Protonix 40 mg daily. 6. Solu-Medrol intravenously. 7. Oxycodone which was prescribed as an outpatient for pain control. ALLERGIES: CODEINE, MORPHINE, PENICILLIN, TORADOL, HALDOL. REVIEW OF SYSTEMS: Noted on medical record. The patient denied initially constipation, hematemesis, or vomiting but admitted to me that she did have vomiting. She denies fevers, chills, or malaise. She denies any chronic cough, dyspnea, hemoptysis, stridor, or wheezing. She denies chest pain or palpitations. She denies any urinary tract symptoms. She does have chronic low back pain with arthralgia. RADIOGRAPHIC DATA: Abdominal x-ray was obtained which was fairly unremarkable except for constipation. PHYSICAL EXAMINATION: VITAL SIGNS: Stable. She is not febrile. HEART: Regular. LUNGS: Clear. ABDOMEN: Diffusely tender, more than expected from palpation. EXTREMITIES: Free from edema. NEUROMUSCULAR: Grossly unremarkable. LABORATORY DATA: Glucose ranging between 200-300. White blood cell count yesterday was 25.3, hemoglobin 15.1, hematocrit 44, platelet count 392,000. I was informed that the CRP and sed rate levels were normal. IMPRESSION: 1. The patient has history of colitis which seems to be a romo colitis based on most recent colonoscopy with multiple pseudopolyps noted as well and active inflammation on biopsy tissues from throughout the bowel. 2. She has generalized abdominal pain which she feels is quite severe, and the cause for this is not clear. In part, it certainly could be related to her inflammatory bowel disease but other causes can be considered as well. 3. She has chronic gastroesophageal reflux disease with intermittent pyrosis fairly well controlled with proton pump inhibitor therapy. 4. Diabetes with poor glucose control. 5. Patient noncompliance with missed appointments and cessation of medications. RECOMMENDATIONS: 1. At this point, I would reduce her Solu-Medrol to 40 mg daily and continue with mesalamine products. She might benefit in the future from a biologic. 2. She can continue with acid blockade therapy as currently prescribed. 3. Her diet can be advanced as tolerated. 4. If not completed recently, CT scan of the abdomen and pelvis would prove beneficial to rule out other potential pathology. I discussed my impressions and recommendations with the managing service. Thank you for allowing me to participate in her care. CC: REYNALDO Ruffin
[2017-12-23] MEDS: NICOTINE 7 MG/24 HOUR PATCH TD SCH (17:23)
[2017-12-23 18:23] LABS: HEMOGLOBIN 12.9 gm/dl (11.6-16.0); MEAN CELL VOLUME 96.1 fl (81-97); MEAN CORPUSCULAR HEMOGLOBIN 31.8 pg (27-33); MEAN CORPUSCULAR HGB CONC 33.1 g/dl (32-36); MEAN PLATELET VOLUME 9.9 fl (7.4-10.4); PLATELET COUNT 394 K/uL (130-400); RED BLOOD COUNT 4.06 M/uL (3.80-5.40); RED CELL DISTRIBUTION WIDTH 13.3 % (11.5-14.5)
[2017-12-23 18:38] LABS: PLATELET ESTIMATE NORMAL (NORMAL)
[2017-12-23] MEDS ORDERED: TRAMADOL HCL 50 MG TABLET PO PRN (18:55)
--- NOTE | 2017-12-23 19:01 | Discharge Summary ---
Providers Discharge Summary Date: 12/23/17 Date of admission: 12/22/17 00:34 Expected Date of Discharge: 12/23/17 Attending physician: MITZI ALFRED Physical Exam - Vital Signs Vital Signs: Vital Signs - Last 24 Hrs Temp Pulse Resp BP Pulse Ox 12/23/17 08:34 20 12/23/17 08:00 97.7 F 81 12 88/45 96 12/22/17 22:22 98.5 F 95 H 18 123/70 97 12/22/17 21:00 16 - General General Appearance: Alert, Oriented x3, Cooperative, No acute distress Limitations: No limitations - Head Head exam: Atraumatic, Normocephalic, Normal inspection - Eye Eye exam: Normal appearance, PERRL. negative: Conjunctival injection, Scleral icterus - ENT ENT exam: Normal exam, Mucous membranes moist Ear exam: Normal external inspection Nasal Exam: Normal inspection Mouth exam: Normal external inspection Teeth exam: Normal inspection - Neck Neck exam: Normal inspection, Full ROM. negative: Tenderness - Respiratory Respiratory exam: Normal lung sounds bilaterally. negative: Respiratory distress, Rhonchi, Stridor, Wheezes - Cardiovascular Cardiovascular Exam: Regular rate, Normal rhythm, Normal heart sounds - GI/Abdominal GI/Abdominal exam: Soft, Tenderness (soft but diffuse tenderness, sudha lower abd) . negative: Distended, Guarding, Rebound, Rigid - Rectal Rectal exam: Deferred - exam: Deferred - Extremities Extremities exam: Normal inspection - Back Back exam: Reports: Normal inspection, Full ROM. Denies: Muscle spasm, Rash noted, Tenderness - Neurological Neurological exam: Alert, Normal gait, Oriented X3, Reflexes normal - Psychiatric Psychiatric exam: Anxious - Skin Skin exam: Dry, Intact, Normal color, Warm Hospitalization - Hospitalization Admission Diagnosis: abdominal pain, GI bleed, syncope - Problem List/Discharge Diagnosis (1) Abdominal pain Status: Acute Discharge Diagnosis: Abdominal location: unspecified location Qualified Code(s): R10.9 - Unspecified abdominal pain Base Code: R10.9 - UNSPECIFIED ABDOMINAL PAIN Comment: 12/23/17 1930 -WBC trending down, now 18 -will dc home on PO cipro and flagyl -continue mesalamine 1000mg QID -continue home steroids -will d/c home with ultram (short-term supply to last until f/u on 12/26) (2) Hematochezia Status: Acute Base Code: K92.1 - MELENA Comment: 12/23/17 -pt reports blood in stool at HS with BM but denies difficulty with BM -H/H stable but has decreased since first draw -repeat CBC at 1800- hgb stable (3) Hyperglycemia Status: Acute Base Code: R73.9 - HYPERGLYCEMIA, UNSPECIFIED Comment: 12/23/17 -continue s/s -secondary to steroid use (4) Colitis Status: Acute Base Code: K52.9 - NONINFECTIVE GASTROENTERITIS AND COLITIS, UNSPECIFIED Comment: 12/23/17 -pt has advanced diet and tolerating well -continue to c/o pain but does not appear to be in distress, percocet 10/325mg Q4 PRN -continue mesalamine 1000mg QID -continue solu medrol 40mg QD (5) DVT prophylaxis Status: Acute Base Code: [id number] - Comment: 12/23/17 -Plan to d/c home, anticoagulant not indicated secondary to blood in stool and mobility not impaired - Disposition Discharge home, self-care - Hospitalization Course Disposition: Home, Self-Care Hospital Course: 22 yo female admitted for abd pain. PMHx of UC. Patient has been to [facility] ED multiple times since . She was seen by Dr. Carolina bower on bentyl 10 mg Q8H and prednisone 10 mg bid x 5 days. She returned as abd pain, rectal bleeding and nausea continued. According to patient, she also became dizzy and loss consciousness at work. Upon presentation, VSS. WBC 15.1 (on steroids), lipase, CMP normal. Serum test negative. UA negative for infection. EKG: NSR, none previous. She was started on 40 mg of IV Solu Medrol Q6H, IVFs, 1 mg of IV Dilaudid Q4H and Zofran. Admitted with GI consult for further medical management. 12/22/17- Patient lying in bed comfortably. Though, states abd pain is 9/10 in severity. Denies fever, chills, vomiting, diarrhea, lightheadedness, headache, melena, unintentional weight loss, or cough. C/o constant lower abd stabbing/ cramping. Aggravated by food, movement. Alleviated, minimally by pain medication, fasting. Associated symptoms include hematochezia, nausea. Last BM was 12/21/16. Has not vomited in over 24 hours. States she was diagnosed with Crohn's colitis and UC in 2013. Most recent colonoscopy in Oct 2017 colitis throughout, including proctitis, TI [facility]. Abdominal CT 07/2017: no acute process of abd/pelvis. Last admission for IBD flare at [facility] in Oct 2017. States she was started on Lialda 4.8 daily and canasa supp. It appears patient received a short script prior to d/c, however has not been on mesalamine since. Patient saw her PCP this past friday. She was started on PO steroid, oxycodone for pain and short acting insulin for steroid induced hyperglycemia. She has not seen [facility] on an outpatient basis in over a year. [employer] Deputy Director: [facility] (colonoscopy by Dr. Romo) PCP: Dr. Frances Procedures: Imaging and X-Rays 12/22/17 16:19 ABDOMEN/PELVIS W CONTRAST [CT] Stat Abnormal Labs: Abnormal Lab Results 12/22/17 12/22/17 12/22/17 Range/Units 06:20 06:20 12:30 WBC (4.2-12.2) K/uL Neutrophils % 90.0 H (47-80) % Lymphocytes % 7.4 L (16-45) % Lymphocytes 8.0 L (16-45) % Carbon Dioxide 20.0 L (22-29) mmol/L POC Glucose 230 H (70-110) mg/dL Random Glucose 376 H (74-109) mg/dL Lactic Acid (0.5-2.2) mmol/L 12/22/17 12/23/17 12/23/17 Range/Units 17:00 06:23 06:23 WBC 24.0 H* (4.2-12.2) K/uL Neutrophils % 84.0 H (47-80) % Lymphocytes % (16-45) % Lymphocytes 13.0 L (16-45) % Carbon Dioxide (22-29) mmol/L POC Glucose 291 H (70-110) mg/dL Random Glucose 143 H (74-109) mg/dL Lactic Acid (0.5-2.2) mmol/L 12/23/17 12/23/17 12/23/17 Range/Units 09:10 11:43 18:20 WBC 18.0 H (4.2-12.2) K/uL Neutrophils % 84.0 H (47-80) % Lymphocytes % (16-45) % Lymphocytes 9.0 L (16-45) % Carbon Dioxide (22-29) mmol/L POC Glucose 198 H (70-110) mg/dL Random Glucose (74-109) mg/dL Lactic Acid 2.5 H (0.5-2.2) mmol/L Condition at Discharge: (2) Stable VTE Discharge VTE Reason For No Overlap Therapy: Not Indicated Discharge Medications - Discharge Medications Prescriptions: Ciprofloxacin HCl [Cipro] 500 mg PO Q12HR #13 tablet Mesalamine [Pentasa] 1,000 mg PO QID #20 capsule.sa Metronidazole 500 mg PO TID #19 tablet Tramadol HCl [Ultram] 100 mg PO Q6H PRN #20 tablet PRN Reason: Abdominal Pain Home Medications: Ambulatory Orders Dicyclomine HCl [Bentyl] 10 mg PO Q8H #20 cap 12/15/17 [Last Taken Unknown] Prednisone [Prednisone 10Mg] 10 mg PO BID #10 tab 12/15/17 [Last Taken Unknown] Ciprofloxacin HCl [Cipro] 500 mg PO Q12HR #13 tablet 12/23/17 [Last Taken Unknown] Mesalamine [Pentasa] 1,000 mg PO QID #20 capsule.sa 12/23/17 [Last Taken Unknown ] Metronidazole 500 mg PO TID #19 tablet 12/23/17 [Last Taken Unknown] Tramadol HCl [Ultram] 100 mg PO Q6H PRN #20 tablet 12/23/17 [Last Taken Unknown] Discharge Plan - Discharge Instructions Activity at Discharge: Increase Activity as Tolerated Diet at Discharge: Diabetic Diet Instructions: Tramadol (By mouth), Crohn Disease (DC) Additional Instructions: Follow up with Dr. Frances on Tuesday 12/26 -Call Dr. 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 for your ovarian cysts Take Cipro 500mg twice daily Take Flagyl 500mg every 8 hours Use ultram for abdominal pain- 1-2 tablets every 4-6 hours for pain Return to the ED for worsening symptoms, including bright red blood in stool, fever, severe nausea and vomiting Quality Measures - Quality Measures Quality Measures: Documentation of Current Medications in Medical Record, Screening for High Blood Pressure and F/U Documented - Current Medications Quality Measure: Measure #130: Documentation of Current Medications Documentation of Current Medications: <Current Medications Documented/Reviewed> [G8427] - Blood Pressure Screening Quality Measure: Screening for High Blood Pressure and Follow-Up Documented Does Patient Have Any of the Following: No Blood Pressure Classification: Pre-Hypertensive BP Reading Systolic Measurement: 124 Diastolic Measurement: 83 Screening for High Blood Pressure: < Pre-Hypertensive BP, F/U Documented > [ G8950] Pre-Hypertensive Follow-up Interventions: Follow-up with rescreen every year. - Elder Abuse Suspicion Index EASI Reference Information: Sonja GREENWOOD, Migue C, Marcelo D, Leo Carpenter.Development and validation of a tool to assist physicians identification of elder abuse: The Elder Abuse Suspicion Index (EASI ). Journal of Elder Abuse and Neglect, 2008; 20 (3): 276-300.
== END 2017-12-23 19:40 | disposition home or self-care (01) | DRG 392 ==
LOC: ER 21:22 → OBSVTOIN 12-22 00:34 → MEDSURG 12-22 00:34
PROVIDERS: ADMIT Internal Medicine; ATTEND Internal Medicine
DX: R10.9 Unspecified abdominal pain (principal); K50.919 Crohn's disease, unspecified, with unspecified complications; K50.119 Crohn's disease of large intestine with unspecified complications; J45.909 Unspecified asthma, uncomplicated; D50.9 Iron deficiency anemia, unspecified; R05 Cough; F17.210 Nicotine dependence, cigarettes, uncomplicated
CPT/HCPCS: 36416; 74177; 80048; 80053; 81003; 81025; 82948; 83605; 83690; 84703; 85025; 85027; 85651; 86140; 93005; 93010; 96361; 96374; 99285; J2405; J2920; J2930; J7030

== ENCOUNTER 2018-05-13 09:00 | Emergency (ER) | payer SELFPAY ==
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
[2018-05-13 10:06] LABS: URINE APPEARANCE CLEAR; URINE BILIRUBIN NEGATIVE (NEGATIVE); URINE BLOOD NEGATIVE (NEGATIVE); URINE COLOR YELLOW; URINE GLUCOSE (UA) NEGATIVE (NEGATIVE); URINE KETONE NEGATIVE (NEGATIVE); URINE LEUKOCYTE ESTERASE NEGATIVE (NEGATIVE); URINE NITRITE NEGATIVE (NEGATIVE); URINE PROTEIN NEGATIVE (NEGATIVE); URINE UROBILINOGEN 0.2 E.U./dL (0.20 - 1.00)
[2018-05-13 10:26] LABS: HCG,QUALITATIVE URINE NEGATIVE (NEGATIVE)
== END 2018-05-13 11:15 | disposition home or self-care (01) ==
LOC: ER 09:00
DX: S20.219A Contusion of unspecified front wall of thorax, initial encounter (principal); S16.1XXA Strain of muscle, fascia and tendon at neck level, initial encounter; R51 Headache; R05 Cough; F17.210 Nicotine dependence, cigarettes, uncomplicated; V43.54XA Car driver injured in collision with van in traffic accident, initial encounter
CPT/HCPCS: 71046; 72050; 81003; 81025; 99283; 99284